=== PATIENT | male | born 1930 | race Caucasian/White ===

== ENCOUNTER → 2016-11-26 | Outpatient (CLI) | payer MEDICARE, OTHER ==
[~2016-11-26] MED LIST: ASPI1TAB7; LOMO PO; MECL-62 PO; MECL1TAB42 PO; PROP20TA3 PO; VITA100064 PO
[2016-11-26 08:06] LABS: AUTOMATED NEUTROPHIL # 2.9 TH/MM3 (1.8-7.7); BASOPHIL % 0.6 % (0.0-2.0); EOSINOPHIL # 0.2 TH/MM3 (0-0.4); EOSINOPHIL % 4.4 % (0.0-4.0); HEMATOCRIT 41.6 % (39.0-51.0); HEMO FLAGS DIFF FINAL; LYMPH % 27.8 % (9.0-44.0); LYMPHOCYTE # 1.4 TH/MM3 (1.0-4.8); MEAN CELL VOLUME 92.4 FL (80.0-100.0); MEAN CORPUSCULAR HEMOGLOBIN 30.9 PG (27.0-34.0); MEAN CORPUSCULAR HGB CONC 33.5 % (32.0-36.0); MONO % 8.3 % (0.0-8.0); NEUT % 58.9 % (16.0-70.0); PLATELET COUNT 195 TH/MM3 (150-450); RED CELL DISTRIBUTION WIDTH 13.6 % (11.6-17.2)
[2016-11-26 09:15] LABS: ALKALINE PHOSPHATASE 50 U/L (45-117); ALT (GPT) 20 U/L (12-78); ANION GAP 4 MEQ/L (5-15); AST (GOT) 22 U/L (15-37); BICARBONATE 33.1 MEQ/L (21.0-32.0); BLOOD UREA NITROGEN 23 MG/DL (7-18); CHLORIDE 103 MEQ/L (98-107); GLOMERULAR FILTRATION RATE 65 ML/MIN (>89); GLUCOSE,FASTING 93 MG/DL (74-99); HDL CHOLESTEROL 41.1 MG/DL (40.0-60.0); LDL CHOLESTEROL 93 MG/DL (0-99); POTASSIUM 4.8 MEQ/L (3.5-5.1); SODIUM (NA) 140 MEQ/L (136-145); TOTAL BILIRUBIN ADULT 0.7 MG/DL (0.2-1.0)
== END ==
LOC: CLAB 07:36
PROVIDERS: ATTEND Family Medicine
DX: D86.0 Sarcoidosis of lung (principal); G25.0 Essential tremor; I67.1 Cerebral aneurysm, nonruptured; I10 Essential (primary) hypertension; I71.9 Aortic aneurysm of unspecified site, without rupture
CPT/HCPCS: 36415; 80053; 80061; 82306; 84443; 85025

== ENCOUNTER 2017-05-27 12:31 | Inpatient (IN) | payer MEDICARE, OTHER ==
[~2017-05-27] VITALS: Ht 188 cm; Wt 75.0 kg
[2017-05-27 12:34] VITALS: BP 167/79; PULSE 68; RESP 20; TEMP 97.8; O2SAT 96
[2017-05-27 13:35] LABS: AUTOMATED NEUTROPHIL # 4.8 TH/MM3 (1.8-7.7); BASOPHIL % 0.4 % (0.0-2.0); EOSINOPHIL # 0.1 TH/MM3 (0-0.4); EOSINOPHIL % 2.1 % (0.0-4.0); HEMATOCRIT 43.7 % (39.0-51.0); HEMO FLAGS DIFF FINAL; LYMPH % 18.4 % (9.0-44.0); LYMPHOCYTE # 1.2 TH/MM3 (1.0-4.8); MEAN CELL VOLUME 93.3 FL (80.0-100.0); MEAN CORPUSCULAR HGB CONC 33.2 % (32.0-36.0); MONO % 7.4 % (0.0-8.0); NEUT % 71.7 % (16.0-70.0); PLATELET COUNT 164 TH/MM3 (150-450); RED BLOOD COUNT 4.68 MIL/MM3 (4.50-5.90); WHITE BLOOD COUNT 6.7 TH/MM3 (4.0-11.0)
[2017-05-27 13:47] LABS: PROTHROMBIN TIME - PATIENT 10.5 SEC (9.8-11.6)
[2017-05-27 14:00] LABS: BICARBONATE 32.9 MEQ/L (21.0-32.0); POTASSIUM 4.6 MEQ/L (3.5-5.1)
--- NOTE | 2017-05-27 14:25 | RADRPT ---
EXAM DATE/TIME: 05/27/2017 13:37 [place] COMPARISON: No previous studies available for comparison. INDICATIONS : Chest pain yesterday. MEDICAL HISTORY : Chronic obstructive pulmonary disease. Sarcoidosis SURGICAL HISTORY : lung surgery years ago because of Sarcoidosis ENCOUNTER: Initial ACUITY: 2 days PAIN SCORE: 8/10 LOCATION: Bilateral chest FINDINGS: PA and mild views of the chest showed nodular densities scattered throughout both lungs. The largest involves the left suprahilar region measuring approximately 2.5 cm in size. No acute infiltrate or ef fusion. Heart is normal in size. Aorta is calcified and mildly tortuous. Calcified lymph nodes are se en scattered throughout the mediastinum. CONCLUSION: 1. Bilateral pulmonary nodules. This could relate to metastatic disease. CT scan of the thorax is sug gested to further evaluate. Gopal Hawkins Jr., MD on May 27, 2017 at 14:21 Board Certified Radiologist. This report was verified electronically.
--- NOTE | 2017-05-27 15:28 | PD ---
HPI Chief Complaint: Chest Pain Time Seen by Provider: 15:15 Travel History International Travel<30 days: No Contact w/Intl Traveler<30days: No Traveled to known affect area: No History of Present Illness HPI 86-year-old male presents for evaluation of chest pain. Symptoms started yesterday evening in the middle the night. He reports a left-sided chest pain that radiated into the left arm and back and lasted for approximately 10-20 minutes and then resolved. He had a similar pain this morning at 10 AM while sitting at home it resolved after 10 minutes. He then decided to come here. While in the waiting room he had a brief episode of pain but he has no pain currently. Lab work and EKG were performed in triage under protocol orders and they do reveal an elevated troponin. The patient currently has no complaints. He denies any chest pain, shortness of breath, diaphoresis, nausea or vomiting, abdominal pain, recent illness, calf swelling. He has never had this type of pain before. Denies any cardiac history. He reports a history of tremors for which he takes propranolol. He reports his primary care physician is Dr. Goldstein. Denies tobacco use. No other complaints. [facility] Past Medical History Diminished Hearing: No Kidney Stones: Yes Neurologic: Yes (TREMORS) Respiratory: Yes (MISSING PART OF L UPPER LOBE) Past Surgical History Genitourinary Surgery: Yes (MULTIPLE LITHOTRIPSY) Thoracic Surgery: Yes (LEFT LOBECTOMY R/T INFECTION) Other Surgery: Yes (FX NOSE REPAIR) Social History Alcohol Use: Yes (1-2 DAILY) Tobacco Use: No Substance Use: No Allergies-Medications (Allergen,Severity, Reaction): Coded Allergies: No Known Allergies (Unverified , 05/27/17) Reported Meds & Prescriptions Reported Meds & Active Scripts Active Propranolol (Propranolol HCl) 20 Mg Tab 20 Mg PO Q8HR Meclizine 25 (Meclizine HCl) 25 Mg Tab 1 Tab PO BID Vitamin D3 (Cholecalciferol) 1,000 Unit Tab 1,000 Units PO DAILY Meclizine Hcl (Meclizine HCl) 25 Mg Tab 25 Mg PO BID Propranolol (Propranolol HCl) 20 Mg Tab 20 Mg PO TID Lomotil (Diphenoxylate HCl/Atropine) 1 Tab Tab 2 Tab PO TID PRN For Severe Diarrhea. Reported Aspirin 81 mg Tab (Aspirin) 81 Mg Tab Review of Systems Except as stated in HPI: all other systems reviewed are Neg Physical Exam Narrative GENERAL: Pleasant well developed well-nourished male in no acute distress resting comfortably in hospital bed. Vital signs reviewed. SKIN: Warm and dry. HEAD: Atraumatic. Normocephalic. EYES: Pupils equal and round. No scleral icterus. No injection or drainage. ENT: No nasal bleeding or discharge. Mucous membranes pink and moist. NECK: Trachea midline. No JVD. CARDIOVASCULAR: Regular rate and rhythm. No murmur appreciated. RESPIRATORY: No accessory muscle use. Clear to auscultation. Breath sounds equal bilaterally. GASTROINTESTINAL: Abdomen soft, non-tender, nondistended. Hepatic and splenic margins not palpable. MUSCULOSKELETAL: No obvious deformities. No clubbing. No cyanosis. No edema. NEUROLOGICAL: Awake and alert. No obvious cranial nerve deficits. Motor grossly within normal limits. Normal speech. PSYCHIATRIC: Appropriate mood and affect; insight and judgment normal. Data Data Last Documented VS Vital Signs Date Time Temp Pulse Resp B/P Pulse Ox O2 Delivery O2 Flow Rate FiO2 05/27/17 12:34 97.8 68 20 167/79 96 Room Air Orders Electrocardiogram (05/27/17 12:55) Complete Blood Count With Diff (05/27/17 12:55) Basic Metabolic Panel (Bmp) (05/27/17 12:55) Ckmb (Isoenzyme) Profile (05/27/17 12:55) Troponin I (05/27/17 12:55) Prothrombin Time / Inr (Pt) (05/27/17 12:55) Chest, Pa & Lat (05/27/17 12:55) Act Partial Throm Time (Ptt) (05/27/17 15:22) Aspirin Chew (Aspirin Chew) (05/27/17 15:30) Heparin Infusion VIN.Q1H (05/27/17 15:41) Heparin Inj (Heparin Inj) (05/27/17 15:45) Heparin Inj (Heparin Inj) (05/27/17 21:45) Heparin Inj (Heparin Inj) (05/27/17 21:45) Heparin-D5w Inj (Heparin-D5w Inj) (05/27/17 15:45) Act Partial Throm Time (Ptt) (05/27/17 15:41) Prothrombin Time / Inr (Pt) (05/27/17 15:41) Cbc No Diff, Includes Plts (05/27/17 15:41) Cbc No Diff, Includes Plts (05/30/17 06:00) Act Partial Throm Time (Ptt) (05/27/17 22:41) Occult Blood (Hemoccult) Stool (05/27/17 15:41) Admit To Inpatient (05/27/17 ) Code Status (05/27/17 16:39) Vital Signs (Adult) Q4H (05/27/17 16:39) Activity Oob Ad Lisa (05/27/17 16:39) Ecommerce Marketing Manager / Telemetry .CONTINUOUS (05/27/17 16:39) Intake + Output VIN.QSHIFT (05/27/17 16:39) Notify Dr: Other (05/27/17 16:39) Diet Heart Healthy (05/27/17 Dinner) Sodium Chlor 0.9% 1000 Ml Inj (Ns 1000 M (05/27/17 23:59) Sodium Chloride 0.9% Flush (Ns Flush) (05/27/17 16:45) Sodium Chloride 0.9% Flush (Ns Flush) (05/27/17 21:00) Acetaminophen (Tylenol) (05/27/17 16:45) Basic Metabolic Panel (Bmp) (05/28/17 06:00) Troponin I (05/27/17 19:11) Troponin I (05/28/17 01:11) Electrocardiogram (05/27/17 19:11) Electrocardiogram (05/28/17 01:11) Naloxone Inj (Narcan Inj) (05/27/17 16:45) Inpatient Certification (05/27/17 ) Propranolol (Inderal) (05/27/17 18:00) Resp Oxygen Juancarlos C Titrat 1-4 L (05/27/17 ) Aspirin (Aspirin) (05/28/17 09:00) Consult Cardiology (05/27/17 ) Admit Order (Ed Use Only) (05/27/17 17:05) Labs Laboratory Tests Test 05/27/17 13:11 White Blood Count 6.7 TH/MM3 Red Blood Count 4.68 MIL/MM3 Hemoglobin 14.5 GM/DL Hematocrit 43.7 % Mean Corpuscular Volume 93.3 FL Mean Corpuscular Hemoglobin 31.0 PG Mean Corpuscular Hemoglobin 33.2 % Concent Red Cell Distribution Width 14.0 % Platelet Count 164 TH/MM3 Mean Platelet Volume 8.1 FL Neutrophils (%) (Auto) 71.7 % Lymphocytes (%) (Auto) 18.4 % Monocytes (%) (Auto) 7.4 % Eosinophils (%) (Auto) 2.1 % Basophils (%) (Auto) 0.4 % Neutrophils # (Auto) 4.8 TH/MM3 Lymphocytes # (Auto) 1.2 TH/MM3 Monocytes # (Auto) 0.5 TH/MM3 Eosinophils # (Auto) 0.1 TH/MM3 Basophils # (Auto) 0.0 TH/MM3 CBC Comment DIFF FINAL Differential Comment Prothrombin Time 10.5 SEC Prothromb Time International 1.0 RATIO Ratio Activated Partial 23.9 SEC Thromboplast Time Sodium Level 141 MEQ/L Potassium Level 4.6 MEQ/L Chloride Level 105 MEQ/L Carbon Dioxide Level 32.9 MEQ/L Anion Gap 3 MEQ/L Blood Urea Nitrogen 21 MG/DL Creatinine 1.07 MG/DL Estimat Glomerular Filtration 66 ML/MIN Rate Random Glucose 72 MG/DL Calcium Level 9.2 MG/DL Total Creatine Kinase 85 U/L Troponin I 0.47 NG/ML MDM Medical Decision Making Medical Screen Exam Complete: Yes Emergency Medical Condition: Yes Medical Record Reviewed: Yes Interpretation(s) EKG reveals sinus rhythm, rate 63, the acute ST changes or T-wave inversions CBC unremarkable Troponin 0.47 Chest x-ray reveals bilateral pulmonary nodules. CT scan of the thorax is suggested for further evaluation. Differential Diagnosis ACS, angina, aortic dissection, pulmonary embolism, pneumothorax, pericarditis, myocarditis Narrative Course 86-year-old male presents after episodic chest pain which started in the middle the night, no pain currently. Pain occurred at rest with no obvious aggravating factors. It is left-sided chest pain that radiated into the left arm, back. Lab work performed in triage reveals a troponin of 0.47. EKG reveals no acute ischemic changes. The patient has already taken 81 mg aspirin at home. He will be given additional aspirin for total 325 mg of aspirin. Multimedia Authoring Specialist on-call will be consulted. 1538: I discussed with steam boiler fireman Dr. Lopez to has agreed to see the patient in consultation, like the patient to be NPO after midnight likely for cardiac catheterization tomorrow, he is agreeable with heparin infusion. I discussed with the patient who is agreeable. He denies any recent bleeding episodes, denies any hematemesis, hematochezia, black or tarry stools. Diagnosis Primary Impression: NSTEMI (non-ST elevated myocardial infarction) Admitting Information Admitting Physician Requests: Admit Mauricio Burns May 27, 2017 15:28
[2017-05-27] MEDS ORDERED: ASPIRIN 81 MG CHEW TAB PO ONE (15:30)
[2017-05-27 15:42] LABS: APTT (PATIENT) 23.9 SEC (24.3-30.1)
[2017-05-27] MEDS ORDERED: HEPARIN-D5W INJ 250 ML IV SCH (15:45)
[2017-05-27] MEDS ORDERED: HEPARIN SODIUM - IV 10,000 UNITS/10 ML VIAL IV ONE (15:45)
--- NOTE | 2017-05-27 16:40 | HHI.HP ---
HPI Service Family Medicine Primary Care Physician Unknown Admission Diagnosis Diagnoses: Chief Complaint: chest pain International Travel<30 Days: No Contact w/Intl Traveler<30days: No Known Affected Area: No History of Present Illness 86 yr old M presents to the ED with chest pain. Pt states the chest pain started about 2-3 am last night and woke the patient up. Described the pain as sharp 7/10 radiating to the back and left arm. Lasted for 30 min, resolved, and pt went back to sleep. Pt experienced the same pain again around 10AM and decided to come to the ED. drove him. He has never had a similar episode before. Denies any cardiac history, SOB, diaphoresis, N/V, abdominal pain, calf swelling. When seen in the ED, pt was not having any active chest pain and appeared well. EKG in ED was normal, no ST elevations or T wave changes. However, troponin was elevated at 0.47. Pt started on heparin drip. Pt is currently on propranolol for essential tremor and takes a baby aspirin daily. No hx of smoking. PCP is Dr. Solo Goldstein. 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 Lives in [place]. Retired. Tobacco: denies ETOH: two drinks/day Drugs: denies (Marcia Pan MD R1) Physical Exam Vital Signs Vital Signs Date Time Temp Pulse Resp B/P Pulse Ox O2 Delivery O2 Flow Rate FiO2 05/27/17 12:34 97.8 68 20 167/79 96 Room Air Physical Exam GENERAL: This is a well-nourished, well-developed patient, in no apparent distress. Sitting up in hospital bed, very friendly. SKIN: No rashes, ecchymoses or lesions. Cool and dry. HEAD: Atraumatic. Normocephalic. No temporal or scalp tenderness. EYES: Pupils equal round and reactive. Extraocular motions intact. No scleral icterus. No injection or drainage. ENT: Nose without bleeding, purulent drainage or septal hematoma. Throat without erythema, tonsillar hypertrophy or exudate. Uvula midline. Airway patent. NECK: Trachea midline. No JVD or lymphadenopathy. Supple, nontender, no meningeal signs. CARDIOVASCULAR: Regular rate and rhythm without murmurs, gallops, or rubs. RESPIRATORY: Clear to auscultation. Breath sounds equal bilaterally. No wheezes , rales, or rhonchi. GASTROINTESTINAL: Abdomen soft, non-tender, nondistended. No hepato-splenomegaly , or palpable masses. No guarding. MUSCULOSKELETAL: Extremities without clubbing, cyanosis, or edema. No joint tenderness, effusion, or edema noted. No calf tenderness. Negative Homans sign bilaterally. NEUROLOGICAL: Awake and alert. Cranial nerves II through XII intact. Motor and sensory grossly within normal limits. Five out of 5 muscle strength in all muscle groups. Normal speech. Laboratory Laboratory Tests Test 05/27/17 13:11 White Blood Count 6.7 Red Blood Count 4.68 Hemoglobin 14.5 Hematocrit 43.7 Mean Corpuscular Volume 93.3 Mean Corpuscular Hemoglobin 31.0 Mean Corpuscular Hemoglobin 33.2 Concent Red Cell Distribution Width 14.0 Platelet Count 164 Mean Platelet Volume 8.1 Neutrophils (%) (Auto) 71.7 Lymphocytes (%) (Auto) 18.4 Monocytes (%) (Auto) 7.4 Eosinophils (%) (Auto) 2.1 Basophils (%) (Auto) 0.4 Neutrophils # (Auto) 4.8 Lymphocytes # (Auto) 1.2 Monocytes # (Auto) 0.5 Eosinophils # (Auto) 0.1 Basophils # (Auto) 0.0 CBC Comment DIFF FINAL Differential Comment Prothrombin Time 10.5 Prothromb Time International 1.0 Ratio Activated Partial 23.9 Thromboplast Time Sodium Level 141 Potassium Level 4.6 Chloride Level 105 Carbon Dioxide Level 32.9 Anion Gap 3 Blood Urea Nitrogen 21 Creatinine 1.07 Estimat Glomerular Filtration 66 Rate Random Glucose 72 Calcium Level 9.2 Total Creatine Kinase 85 Troponin I 0.47 (Marcia Pan MD R1) Result Diagram: 05/27/17 1311 05/27/17 1311 Assessment and Plan Assessment and Plan 86-year old M presenting with episodic chest pain. Pt had left-sided chest pain radiating to left arm and back. Pt had no active chest pain when seen in ED. EKG was normal. CXR revealed bilateral pulmonary nodules, possibly due to pt's hx of sarcoidosis. Labs revealed elevated troponin at 0.47. Differential diagnoses include ACS, angina, AK, aortic dissection, pulmonary embolism. Pt on heparin drip, started on metoprolol (for BP), and continue with aspirin. Pt will be started on statin. Since pt is now at increased cardiovascular risk, lipid panel ordered. Cardiology consulted. Pt made NPO after midnight, will perform cardiac catheterization in the AM. Code Status Full code Discussed Condition With Pt discussed with Dr. Stevens. Pt seen and examined with Dr. Atul Harrell (Marcia Pan MD R1) Attending Attestation THIS CASE WAS DISCUSSED WITH THE RESIDENT PHYSICIANS. I HAVE REVIEWED THE RECORD AND AGREE WITH THE ABOVE NOTE AND PLAN OF CARE WAS DISCUSSED. I HAVE AUTHORIZED THE ORDER FOR ADMISSION TO AN IN-PATIENT STATUS. (Raghavendra Stevens MD) Problem List: (1) NSTEMI (non-ST elevated myocardial infarction) Status: Acute Plan: Pt presented with episodic left-sided chest pain radiating to the back and left arm. -EKG within normal limits -CBC unremarkable -Troponin elevated at 0.47, will continue to trend -CXR reveals bilateral pulmonary nodules, possibly due to pt's hx of sarcoidosis -Pt takes baby aspirin at home, will continue to take while in hospital -Pt on heparin drip -Since pt has increased cardiovascular risks, lipid panel ordered -Cardiology consulted, will perform cardiac catheterization in the AM, pt made NPO after midnight -Pt will start atorvastatin tomorrow and will be discharge on it -Pt placed on telemetry (2) Benign essential tremor Status: Acute Plan: -Pt takes propranolol at home -Will hold off on propranolol, since pt was started on metoprolol for high BP (3) Hypertension Status: Acute Plan: -Last BP check was 166/89 -Start Metoprolol 25mg PO daily -Continue to monitor BP (4) Nutrition, metabolism, and development symptoms Status: Acute Plan: Fluids: start at midnight on maintenance fluids Nutrition: NPO after midnight Nursing orders: telemetry, monitor I & Os, monitor vitals q4h (Marcia Pan MD R1) Physician Certification 2 Midnight Certification Type: Admission for Inpatient Services Order for Inpatient Services The services are ordered in accordance with Medicare regulations or non- Medicare payer requirements, as applicable. In the case of services not specified as inpatient-only, they are appropriately provided as inpatient services in accordance with the 2-midnight benchmark. Estimated LOS (days): 2 2 days is the estimated time the patient will need to remain in the hospital, assuming treatment plan goals are met and no additional complications. Post-Hospital Plan: Home (Marcia Pan MD R1) Problem Qualifiers (1) Hypertension: Qualified Code: I10 - Hypertension, unspecified type Marcia Pan MD R1 May 27, 2017 16:40 Raghavendra Stevens MD May 28, 2017 16:39
[2017-05-27] MEDS ORDERED: SODIUM CHLORIDE 0.9% FLUSH 10 ML FLUSH IV FLUSH PRN (16:45)
[2017-05-27] MEDS ORDERED: NALOXONE HCL 0.4 MG/ML AMP IV PRN (16:45)
[2017-05-27] MEDS ORDERED: ACETAMINOPHEN 325 MG TAB PO PRN (16:45)
[2017-05-27 17:28] VITALS: BP 166/89; PULSE 69; RESP 18; O2SAT 96
[2017-05-27 18:00] VITALS: O2SAT 96
[2017-05-27] MEDS ORDERED: PROPRANOLOL HCL 20 MG TAB PO SCH (18:00)
[2017-05-27] MEDS: METOPROLOL SUCCINATE 25 MG EXTENDED RELEASE TAB PO SCH (18:20)
[2017-05-27 19:24] LABS: HDL CHOLESTEROL 60.2 MG/DL (40.0-60.0)
[2017-05-27 19:44] VITALS: BP 121/74; PULSE 78; RESP 18; O2SAT 98
[2017-05-27] MEDS ORDERED: ASPI81CH CHEW ×2 (19:45→19:46)
[2017-05-27] MEDS: SODIUM CHLORIDE 0.9% FLUSH 10 ML FLUSH IV FLUSH SCH (21:05)
[2017-05-27 21:45] VITALS: BP 162/85; PULSE 65; RESP 18; TEMP 97.6; O2SAT 96
[2017-05-27] MEDS ORDERED: HEPARIN SODIUM - IV 10,000 UNITS/10 ML VIAL IV PRN ×2 (21:45)
[2017-05-27 22:30] LABS: APTT (PATIENT) 42.9 SEC (24.3-30.1)
[2017-05-28] VITALS (9 sets, daily range): BP systolic 116–146; BP diastolic 63–89; PULSE 6–87; RESP 16–20; TEMP 97.6–98.3; O2SAT 94–95
[2017-05-28] MEDS: SODIUM CHLOR 0.9% 1000 ML INJ 1,000 ML IV SCH ×2 (00:56→08:23)
[2017-05-28 04:14] LABS: APTT (PATIENT) 42.3 SEC (24.3-30.1)
[2017-05-28 04:28] LABS: BICARBONATE 27.2 MEQ/L (21.0-32.0); POTASSIUM 4.2 MEQ/L (3.5-5.1)
--- NOTE | 2017-05-28 07:29 | HHI.FPPN ---
Subjective Remarks Pt doing well this AM. Sitting up in bed and reading. Vitals are within normal limits. Afebrile. Pt reports not having any active chest pain throughout the night. Pt states he will get cardiac catherization around 10AM. Denies CP, SOB, and N/V. No other complaints at this time. (Marcia Pan MD R1) Objective Vitals Vital Signs Date Time Temp Pulse Resp B/P Pulse Ox O2 Delivery O2 Flow Rate FiO2 05/28/17 04:00 97.6 59 16 118/63 94 05/28/17 00:00 97.8 62 16 122/68 94 05/27/17 21:45 97.6 65 18 162/85 96 05/27/17 19:44 78 18 121/74 98 Room Air 05/27/17 18:00 96 21 05/27/17 17:28 69 18 166/89 96 Room Air 05/27/17 12:34 97.8 68 20 167/79 96 Room Air (Marcia Pan MD R1) Result Diagram: 05/27/17 1311 05/28/17 0344 Objective Remarks GENERAL: Well-nourished, well-developed patient. Pleasant, sitting in bed reading about his cardiac procedure. CARDIOVASCULAR: Regular rate and rhythm without murmurs, gallops, or rubs. RESPIRATORY: Breath sounds equal bilaterally. No accessory muscle use. GASTROINTESTINAL: Abdomen soft, non-tender, nondistended. EXTREMITIES: No cyanosis, or edema. (Marcia Pan MD R1) A/P Assessment and Plan 86-year old M presenting with episodic chest pain. Pt had left-sided chest pain radiating to left arm and back. Pt had no active chest pain when seen in ED. EKG was normal. CXR revealed bilateral pulmonary nodules, possibly due to pt's hx of sarcoidosis. Elevated troponin in ED at 0.47. Differential diagnoses include ACS, angina, [place], aortic dissection, pulmonary embolism. Pt on heparin drip, started on metoprolol (for BP), and continue with aspirin. Pt started on statin yesterday. Lipid panel showed elevated LDL at 101. Cardiology consulted. Troponin trending up to 1.37. Pt having cardiac catheterization this AM. (Marcia Pan MD R1) Attending Attestation Patient examined and case discussed with resident physicians I have read the above note and agree with the assessment/plan is discussed with me I was involved in all medical decision making for this patient Raghavendra Stevens M.D. (Raghavendra Stevens MD) Problem List: (1) NSTEMI (non-ST elevated myocardial infarction) Status: Acute Plan: Pt presented with episodic left-sided chest pain radiating to the back and left arm. Elevated troponin. Pt receiving cardiac procedure this AM. Will order repeat EKG and troponin after cardiac procedure today. -EKG 05/27 within normal limits -CBC 05/27 unremarkable -Troponin elevated at 0.47 in ED 05/27, troponin trending up to 1.37 00:51 at -CXR reveals bilateral pulmonary nodules, possibly due to pt's hx of sarcoidosis -Pt takes baby aspirin at home, will continue to take while in hospital -Pt on heparin drip -Since pt has increased cardiovascular risks, lipid panel showed elevated LDL at 101 -Cardiology consulted, will perform cardiac catheterization today -Pt started on atorvastatin and will be discharge on it -Pt placed on telemetry (2) Benign essential tremor Status: Acute Plan: -Pt takes propranolol at home -Will hold off on propranolol, since pt was started on metoprolol for high BP (3) Hypertension Status: Acute Plan: -Last BP check was 118/63 -Continue Metoprolol 25mg PO daily -Continue to monitor BP (4) Nutrition, metabolism, and development symptoms Status: Acute Plan: Fluids: discontinue maintence fluids after pt comes back from cardiac procedure Nutrition: start regular diet after cardiac catherization Nursing orders: telemetry, monitor I & Os, monitor vitals q4h (Marcai Pan MD R1) Problem Qualifiers (1) Hypertension: Qualified Code: I10 - Hypertension, unspecified type Marcia Pan MD R1 May 28, 2017 07:28 Raghavendra Stevens MD May 28, 2017 16:39
[2017-05-28] MEDS: ASPIRIN 325 MG TAB PO SCH (08:21)
[2017-05-28] MEDS: METOPROLOL SUCCINATE 25 MG EXTENDED RELEASE TAB PO SCH (08:21)
[2017-05-28] MEDS: SODIUM CHLORIDE 0.9% FLUSH 10 ML FLUSH IV FLUSH SCH ×2 (08:21→21:00)
[2017-05-28] MEDS ORDERED: HEPARIN-NS/PF INJ 500 ML ONE (08:34)
[2017-05-28] MEDS ORDERED: HEPARIN SODIUM - IV 10,000 UNITS/10 ML VIAL ONE (08:35)
[2017-05-28] MEDS ORDERED: NITROGLYCERIN INJ 5 ML ONE (08:35)
[2017-05-28] MEDS ORDERED: MIDAZOLAM HCL 2 MG/2 ML VIAL ONE (08:35)
[2017-05-28] MEDS ORDERED: BIVALIRUDIN 250 MG VIAL ONE (09:08)
[2017-05-28] MEDS ORDERED: NITROGLYCERIN 0.4 MG SL 25 TABS/BTL SL ONE (09:35)
--- NOTE | 2017-05-28 09:37 | MB ---
cc: SHIVANI OH DATE OF CONSULTATION: 05/28/2017 REASON FOR CONSULTATION [id number] CO. HISTORY OF PRESENT ILLNESS This is an 86-year-old gentleman who does not have prior history of known heart disease. He presented to the emergency department with acute onset of substernal chest pain. He has now had chest pain two nights in a row which woke him up about 2:00 or 3:00 a.m. yesterday. He described it as 7/10 discomfort radiating towards his left arm associated with some diaphoresis and minimal shortness of breath. He came into the emergency department. EKG showed no significant ST-segment changes but his initial troponin was elevated at 0.47. He has been chest pain free since arrival. His follow-up troponin is now further elevated. We are consulted for consideration of cardiac catheterization. PAST MEDICAL HISTORY 1. A very small brain aneurysm followed by neurosurgery without any invasive strategy planned. 2. Essential tremor. 3. Vertigo. 4. [place]'s disease. ALLERGIES No known drug allergies. FAMILY HISTORY He denies any family history of early coronary artery disease or sudden cardiac , although his mom at age 67 did have a stroke, heart disease and valve replacement. SOCIAL HISTORY He is retired. Denies any drug use or tobacco use. Does report two alcoholic drinks a day. REVIEW OF SYSTEMS A 12-point review of system was performed and negative unless otherwise noted in the history of present illness. PHYSICAL EXAMINATION VITAL SIGNS: Temperature 97, heart rates 59, blood pressure 118/63 mmHg. GENERAL: In general alert and oriented x3 in no acute distress. HEENT: Pupils are reactive to light and accommodation. Extraocular movements are intact. NECK: No jugular venous distention. No thyromegaly. No lymphadenopathy. No carotid bruits. LUNGS: Clear to auscultation bilaterally. CARDIOVASCULAR: Regular rate and rhythm without murmurs, rubs or gallops. ABDOMEN: Nontender, nondistended. Good bowel sounds. No hepatosplenomegaly. EXTREMITIES: No clubbing, cyanosis or edema. Good peripheral pulses. NEUROLOGIC: Cranial nerves intact. Motor and sensory grossly intact. LABORATORY Sodium 142, potassium 4.2, BUN 19, creatinine 0.94. Troponins up to 1.37. ELECTROCARDIOGRAM Electrocardiogram shows sinus rhythm with no ischemic changes. ASSESSMENT 1. [id number] CO. 2. Hypertension. PLAN Given the patient's suggestive symptoms and elevated troponin this does appear to be clearly related to acute coronary syndrome. We discussed risks, benefits and alternatives of cardiac catheterization. He is agreeable. He is on aspirin, beta melinda and statin therapy. His heart rate is on the low side. Will see how his heart rate augments with activity. He is on a heparin drip. Will stop that prior to the procedure. Will obtain a 2-D echocardiogram and anticipate cardiac catheterization later today. MD ESSIE Belcher/BT /7:51 AM /9:26 AM
[2017-05-28] MEDS ORDERED: CLOPIDOGREL 300 MG TAB ONE (09:39)
--- NOTE | 2017-05-28 09:46 | CATHPROC ---
[email or web address] HIS Report Study Information Study Number Admission Scheduled Start Study Start [id number] May 27 2017 5:07PM 05/27/2017 May 28 2017 8:37AM [place] [facility] Cardiac Catheterization Admit Source Facility Department Other [facility] - Deputy Chief Executive Physician and Clinical Staff Initial Ivan Lopez Chief Informatics Officer Talisha Edgar,RN Other cathlab, cathlab Recorder Santiago Lange RCIS(BS) Scrub Aleta Salazar,RT(R) (BS) Procedures Performed Procedure Location (Site) Vessel Name Coronary Angiograms RCA Right Coronary Drug Eluting Inflatio CIRC Mid CIRC L Heart Cath PTCA CIRC Mid CIRC Wire insertion Radial (right) Radial Art. Equipment Time Sole Rougher Description Size Mfg Part Number Used/Scraped TRANSDUCER, JADE [id number] 08:38 Xiaohongshu * Used W/STOCKCOCK *[id number] 09:15 [employer] BALLOON, 2.0 12MM EMERGE MR 2.0 12MM Used *[id number] [phone] *[id number] [phone] *[id number] *[id number] [id number] *[id number] 08:38 MEDLINE INDUSTRIES PACK, CCL CUSTOM * Used *[id number] 08:38 CoverMyMeds SUPPORT, ARTERIAL ADULT [id number] Used [id number] 08:38 MEDLINE PACER PEN, SKIN DUAL W/ RULER * Used *[id number] STENT, 2.5 18 RESOLUTE [id number] 09:23 MEDTRONIC 2.5 18 Used INTEGRITY RX *[id number] STENT, 2.5 8 RESOLUTE [id number] 09:31 MEDTRONIC 2.5 8 Used INTEGRITY RX *[id number] 09:10 [place] 30 BOBBY INDEFLATOR Used *[id number] BAND, RADIAL COMPRESSION TR [id number] 09:38 CinnaBid MEDICAL 29CM Used LARGE 29 *[id number] SHEATH, FR6 RADIAL PRELUDE 08:38 [employer]lestop FR 6 [id number] Used EASE 11CM [id number] 08:38 [employer] WIRE, EXCHANGE 260CM 3MMJ 260CM Used *[id number] 08:38 NYCOMED OMNIPAQUE, 350 MG, 150ML 150ML [id number] Used [id number] 08:38 [facility] BLANKET,WARM AIR CCL * Used *[id number] WIRE, RUNTHROUGH NS FLOPPY [id number] 09:10 Growl Media 180CM Used .014 180CM *[id number] Equipment Model, Serial, Lot Number and Expiration Data Description Model Number Serial Number Lot Number Expiration Date BALLOON, 2.0 12MM EMERGE MR [id number] 10-03-2019 STENT, 2.5 18 RESOLUTE [id number] 08-24-2018 INTEGRITY RX STENT, 2.5 8 RESOLUTE [id number] 02-25-2019 INTEGRITY RX History: Current Medications Medication Dosage/Unit Route Frequency Last Date/Time Taken Beta Jhonathan ASA History: Allergies Allergy Reaction No Known Allergies History: Risk Factors Family History of Hypertension Dyslipidemia Previous OR Previous Heart Failure Premature CAD No No Yes No No Prior Valve Prior PCI Prior CABG Surgery No No No Cerebrovascular Peripheral Artery Chronic Lung On Dialysis Diabetes Disease Disease Disease No No No Yes No History: Symptoms/Diagnosis Selection Items Chest pain History: Stress Tests Stress or Imaging Studies Performed No History: Other Current Smoker Method Quit Packs a Day Years Used Pack Years No Cigarettes 47 Years Ago 1 10 10 Labs Hgb (g/dl) Hct (%) WBC (l/cumm) Platelets (thousands) 11.60-17.00 35.00-51.00 4.00-11.00 150.00-450.00 14.5 43.7 6.7 164 Glucose (mg/dl) BUN (mg/dl) Creatinine (mg/dl) BUN:Creatinine (1:x) 74.00-106.00 7.00-18.00 0.50-1.30 10.00-20.00 98 19 0.9 21.1 Na (meq/l) K (meq/l) 136.00-145.00 3.50-5.10 142 4.2 INR (PTT:PT) 0.90-1.10 1 Troponin I (ng/ml) CPK (u/l) CPK-MB (ng/ML) 0.02-0.05 26.00-308.00 0.50-3.60 1.37 85 Not Drawn Medication Medication Total Dose (Bolus/Oral) Medication Total Dosage/Unit 1% XYLOCAINE 5 mL ANGIOMAX BOLUS 10.8 mL FENTANYL 75 mcg HEPARIN 3000 units NITROGLYCERIN S/L 0.4 mg NTG (IC) 400 mcg OXYGEN 2 l/min PLAVIX 600 mg VERSED 2 mg Medications (Bolus/Oral) Medication Time Given Dosage/Unit Administered By Reason VERSED 05/28/2017 8:56:40 AM 1 mg Talisha Edgar 1 mg VERSED given in lab by Talisha Edgar RN in Left Forearm via Peripheral IV. Ordered by Ivan Lopez. FENTANYL 05/28/2017 8:56:53 AM 50 mcg Talisha Edgar 50 mcg FENTANYL given in lab by Talisha Edgar RN in Left Forearm via Peripheral IV. Ordered by Ivan Oconnor. OXYGEN 05/28/2017 9:01:22 AM 2 l/min Talisha Edgar 2 l/min OXYGEN given in lab by Talisha Edgar RN via Nasal. Ordered by Ivan Lopez. 1% XYLOCAINE 05/28/2017 9:01:32 AM 5 mL Ivan Lopez 5 mL 1% XYLOCAINE given in lab by Ivan Lopez in Right Radial via Subcutaneous. NTG (IC) 05/28/2017 9:02:51 AM 200 mcg Ivan Lopez 200 mcg NTG (IC) given in lab by Ivan Lopez in Right Radial via Intra-arterial. HEPARIN 05/28/2017 9:04:19 AM 3000 units Talisha Edgar 3000 units HEPARIN given in lab by Talisha Edgar RN in Left Forearm via Peripheral IV. Ordered b y Ivan Lopez. ANGIOMAX BOLUS 05/28/2017 9:09:53 AM 10.8 mL Talisha Edgar 10.8 mL ANGIOMAX BOLUS given in lab by Talisha Edgar RN in Left Forearm via Peripheral IV. Order ed by Ivan Lopez. NTG (IC) 05/28/2017 9:29:17 AM 200 mcg Ivan Lopez 200 mcg NTG (IC) given in lab by Ivan Lopez via Intra-coronary. VERSED 05/28/2017 9:32:09 AM 1 mg Talisha Edgar 1 mg VERSED given in lab by Talisha Edgar RN in Left Forearm via Peripheral IV. Ordered by Ivan Lopez. FENTANYL 05/28/2017 9:33:12 AM 25 mcg Talisha Edgar 25 mcg FENTANYL given in lab by Talisha Edgar RN in Left Forearm via Peripheral IV. Ordered by Ivan Oconnor. NITROGLYCERIN S/L 05/28/2017 9:36:15 AM 0.4 mg Talisha Edgar 0.4 mg NITROGLYCERIN S/L given in lab by Talisha Edgar RN via Sublingual. Ordered by Teo Lopez. PLAVIX 05/28/2017 9:37:00 AM 600 mg Talisha Egdar 600 mg PLAVIX given in lab by Talisha Edgar RN via Oral. Ordered by Ivan Lopez. Medication (Drip) Medication Time Given Dosage/Unit Concentration/Unit Diluent (ml) Solution ANGIOMAX DRIP 05/28/2017 9:13:35 AM 1.75 mg/kg/hr 250 mg 50 NaCl .9 1.75 mg/kg/hr ANGIOMAX DRIP given in lab by Talisha Edgar RN in Left Forearm via Peripheral IV. Pump/Drip Flow = 25.13 ml/hr using NaCl .9 with a concentration of 250 mg in 50 ml. Ordered by Ivan Lopez. IV Solutions 05/28/2017 8:37:30 AM 0 mL (IV) 500 NaCl .9 Patient arrived on IV Solutions given by cathlab, cathlab in Left Forearm via Peripheral IV. Pump/Dri p Flow = 20 ml/hr using NaCl .9. Initial Case Assessment Cardiovascular HR Rhythm NIBP Chest Pain 61 sinus 161/86 0 Edema Present Skin color Skin None Normal Warm Dry Circulatory - Right Pulses Dorsalis Pedis Femoral Radial 2 3 3 Scale (0,1,2,3,4,d) Scale (0,1,2,3,4,d) Neurological State Oriented to time-place- Alert Moves all extremities person Respiration - General Respiration Rate SpO2 (%) (B/min) 16 98 Final Case Assessment Cardiovascular HR Rhythm NIBP Chest Pain 69 sinus 149/88 0 Edema Present Skin color Skin None Normal Warm Dry Circulatory - Right Pulses Dorsalis Pedis Femoral Radial 2 3 3 Scale (0,1,2,3,4,d) Scale (0,1,2,3,4,d) Neurological State Oriented to time-place- Alert Moves all extremities person Respiration - General Respiration Rate SpO2 (%) (B/min) 14 100 Chronological Log Time Study Chronological Log 8:30:00 Patient arrived via Bed. 8:30:00 Patient Name, D.O.B, / Armband Verified By R.N. 8:30:00 Consent signed by the physician and the patient and verified by the Deputy Chief Executive staff. Vitals capture started with the following parameters, Patient=Adult, Interval=5 min, Initial Pre ewnlj=910 mmHg, 8:37:15 Deflation Rate=5 mmHg 8:37:18 Pre-op and post- op instructions given; patient acknowledges understanding of instructions. 8:37:18 Verbal Stimulation=2 Physical Stimulation=2 Airway=2 Respiration=2 TOTAL=8. (0=absent, 1=duncan ited, 2=present) 8:37:19 Presedation assessment performed by Deputy Chief Executive RN. 8:37:20 Allens test performed on the right radial and ulnar artery. 8:37:21 Immediate Presedation assesment performed by physician. 8:37:22 Patient has been NPO for More than 6Hrs. 8:37:22 Skin Breakdown- none per patient 8:37:26 Patient Warmer Placed on the Table. 8:37:27 Halie Prominences Protected 8:37:28 A # 20 IV was noted in the Forearm (right). Grade = 0 8:37:29 A # 20 IV was noted in the Forearm (left). Grade = 0 Patient arrived on IV Solutions given by cathlab, cathlab in Left Forearm via Peripheral IV. Pum p/Drip Flow = 20 ml/hr 8:37:30 using NaCl .9. 8:37:30 History and physical on the chart or being dictated. 8:39:16 HR=62 bpm, IORU=449/86 mmhg, SpO2=96.0 %, Resp=14 B/min, Pain=0, Laura=10, Montgomery=2 Assessment: Initial Case, HR=61 BPM, Rhythm=sinus, VOIU=264/86 mmhg, Chest Pain=0, Edema=None, Color=Normal, Skin = Warm, Dry 8:39:57 Right Pulses: John Ped=2, Femoral=3, Radial=3 Neurological: State=Alert, Ox3, AMAYA Respiration: Resp=16 B/min, SpO2=98 % 8:42:51 HR=60 bpm, JIYH=209/86 mmhg, SpO2=95.0 %, Resp=15 B/min, Pain=0, Laura=10, Montgomery=2 8:47:50 HR=59 bpm, KPNG=174/75 mmhg, SpO2=95.0 %, Resp=15 B/min, Pain=0, Laura=10, Montgomery=2 8:48:10 Right Radial and groin(s) prepped with 2% chlorhexidine, and with a 3 min. waiting time. 8:52:49 HR=63 bpm, QMMB=023/88 mmhg, SpO2=96.0 %, Resp=14 B/min, Pain=0, Laura=10, Montgomery=2 8:52:50 paged 8:54:05 Pressure channel 1 zeroed. 8:55:38 MD responded 8:56:14 MD arrived. 8:56:18 Contrast Scanned 8:56:19 Immediate Presedation assesment performed by physician. 8:56:40 1 mg VERSED given in lab by Talisha Edgar, NABILA in Left Forearm via Peripheral IV. Ordered by Ivan Lopez. 50 mcg FENTANYL given in lab by Talisha Edgar RN in Left Forearm via Peripheral IV. Ordered by John 8:56:53 Ivan. 8:57:48 HR=65 bpm, WHVQ=374/93 mmhg, SpO2=96.0 %, Resp=16 B/min, Pain=0, Laura=10, Montgomery=2 Time Out. Correct patient, correct procedure,correct physician, ,power injector loaded with cont rast with surgical team 9:00:50 present. Time Out Concurred by , individual staff in procedure 9:01:10 Case Start 9:01:17 Verbal Stimulation=2 Physical Stimulation=2 Airway=2 Respiration=2 TOTAL=8. (0=absent, 1=duncan ited, 2=present) 9:01:22 2 l/min OXYGEN given in lab by Talisha Edgar, NABILA via Nasal. Ordered by Ivan Lopez. 9:01:32 5 mL 1% XYLOCAINE given in lab by Ivan Lopez in Right Radial via Subcutaneous. 9:02:27 Access site was Right Radial Artery. A SHEATH, FR6 RADIAL PRELUDE EASE 11CM FR 6 was advanced into the Radial (right) using the [place] ravinder 9:02:37 technique. 9:02:51 200 mcg NTG (IC) given in lab by Ivan Lopez in Right Radial via Intra-arterial. 9:02:52 HR=62 bpm, OZJB=920/86 mmhg, SpO2=95.0 %, Resp=16 B/min, Pain=0, Laura=10, Montgomery=2 9:03:09 In the Radial (right) the SHEATH, FR6 RADIAL PRELUDE EASE 11CM FR [address] by Ivan Lopez. A JR 5.0 INFINITI CATHETER FR 6 was advanced over a wire. OMNIPAQUE, 350 MG, 150ML 150ML was use d for 9:03:29 injections. 3000 units HEPARIN given in lab by Talisha Edgar, RN in Left Forearm via Peripheral IV. Orde red by John, 9:04:19 Ivan. Recorded Pressure: LV, HR=62, Condition=Condition 1 9:04:55 (Left Ventricle) LV 104/1/5 Recorded Pressure: LV, Ao, HR=62, Condition=Condition 1 9:05:01 (Left Ventricle) LV 102/-1/6, (Aorta) Ao 107/60/82 Recorded Pressure: Ao, HR=62, Condition=Condition 1 9:05:29 (Aorta) Ao 105/66/84 9:05:37 The RCA was injected and visualized at various angles. OMNIPAQUE, 350 MG, 150ML 150ML used. After removing the current catheter a JL 3.5 INFINITI CATHETER FR 6 was advanced over a WIRE, EX CHANGE 260CM 9:06:34 3MMJ 260CM. 9:07:49 HR=62 bpm, NWXN=064/70 mmhg, SpO2=98.0 %, Resp=8 B/min, Pain=0, Laura=10, Montgomery=2 Recorded Pressure: Ao, HR=63, Condition=Condition 1 9:07:55 (Aorta) Ao 108/64/84 After removing the current catheter a AL 1.5 GUIDE CATHETER FR 6 was advanced over a WIRE, EXCHA NGE 260CM 9:09:42 3MMJ 260CM. 10.8 mL ANGIOMAX BOLUS given in lab by Talisha Edgar, NABILA in Left Forearm via Peripheral IV. Ordered by 9:09:53 Ivan Lopez. After removing the current catheter a AL 3 GUIDE CATHETER FR 6 was advanced over a WIRE, EXCHANG E 260CM 9:12:27 3MMJ 260CM. 9:13:18 HR=61 bpm, CALP=519/76 mmhg, SpO2=99.0 %, Resp=12 B/min, Pain=0, Laura=10, Montgomery=2 1.75 mg/kg/hr ANGIOMAX DRIP given in lab by Talisha Edgar RN in Left Forearm via Peripheral IV. Pump/Drip 9:13:35 Flow = 25.13 ml/hr using NaCl .9 with a concentration of 250 mg in 50 ml. Ordered by Teo Lopez. 9:14:54 A WIRE, RUNTHROUGH NS FLOPPY .014 180CM 180CM was inserted via Radial (right). 9:17:53 HR=61 bpm, ARMP=622/79 mmhg, CcR2=711.0 %, Resp=12 B/min, Pain=0, Laura=10, Montgomery=2 9:19:02 Interventional wire has crossed the lesion A BALLOON, 2.0 12MM EMERGE MR 2.0 12MM was inserted over WIRE, RUNTHROUGH NS FLOPPY .014 180CM 1 80CM 9:21:17 via the CIRC Mid. A BALLOON, 2.0 12MM EMERGE MR 2.0 12MM over a WIRE, RUNTHROUGH NS FLOPPY .014 180CM 180CM in the CIRC 9:21:26 Mid was inflated using a 30 BOBBY INDEFLATOR at 12 bobby for 25 sec. 9:22:03 Balloon Removed. 9:23:35 HR=65 bpm, RTME=641/75 mmhg, GkM6=448.0 %, Resp=11 B/min, Pain=0, Laura=10, Montgomery=2 9:24:11 Lost wire position 9:26:22 Interventional wire has crossed the lesion A STENT, 2.5 18 RESOLUTE INTEGRITY RX 2.5 18 was advanced through a AL 3 GUIDE CATHETER FR 6 ove r a WIRE, 9:27:15 RUNTHROUGH NS FLOPPY .014 180CM 180CM. A STENT, 2.5 18 RESOLUTE INTEGRITY RX 2.5 18 was deployed using a 30 BOBBY INDEFLATOR at 14 atmosp heres for 9:27:45 14 seconds in the CIRC Mid. 9:27:55 HR=66 bpm, IALG=081/85 mmhg, SfJ3=682.0 %, Resp=15 B/min, Pain=0, Alura=10, Montgomery=2 9:28:54 Delivery device removed 9:29:17 200 mcg NTG (IC) given in lab by Ivan Lopez via Intra-coronary. A STENT, 2.5 8 RESOLUTE INTEGRITY RX 2.5 8 was advanced through a AL 3 GUIDE CATHETER FR 6 over a WIRE, 9:30:16 RUNTHROUGH NS FLOPPY .014 180CM 180CM. 9:32:09 1 mg VERSED given in lab by Talisha Edgar, NABILA in Left Forearm via Peripheral IV. Ordered by Ivan Lopez. A STENT, 2.5 8 RESOLUTE INTEGRITY RX 2.5 8 was deployed using a 30 BOBBY INDEFLATOR at 14 atmosphe res for 5 9:32:47 seconds in the CIRC Mid. 9:32:58 HR=67 bpm, AUJO=192/88 mmhg, KpI7=798.0 %, Resp=14 B/min, Pain=0, Laura=10, Montgomery=2 25 mcg FENTANYL given in lab by Talisha Edgar RN in Left Forearm via Peripheral IV. Ordered by John 9:33:12 Ivan. 9:34:01 Delivery device removed 9:34:11 Wire removed 9:34:48 Patient complaining of chest pain. 9:35:18 Catheter was removed 9:35:22 Case End 9:36:15 0.4 mg NITROGLYCERIN S/L given in lab by Talisha Edgar RN via Sublingual. Ordered by Ivan Delacruz. Assessment: Final Case, HR=69 BPM, Rhythm=sinus, ZPJF=119/88 mmhg, Chest Pain=0, Edema=None, Color=Normal, Skin = Warm, Dry 9:36:35 Right Pulses: John Ped=2, Femoral=3, Radial=3 Neurological: State=Alert, Ox3, AMAYA Respiration: Resp=14 B/min, TiG4=315 % 9:36:55 Catheter(s) removed without difficulty Radial Compression Device Used. 98 mLs of air placed in BAND, RADIAL COMPRESSION TR LARGE 29 29C M. Affected 9:36:56 hand 12 % O2 saturation. 9:37:00 600 mg PLAVIX given in lab by Talisha Edgar, NABILA via Oral. Ordered by Ivan Lopez. 9:37:09 Sterile dressing applied to site 9:37:10 No case complications noted. 9:37:11 Cine recording checked. 9:37:12 Holding Area notified of successful intervention. 9:37:13 Bedside Report will be given. 9:37:14 Implantable Device card placed in patient's chart. 9:37:16 Contrast Scanned 9:37:17 Verbal Stimulation=2 Physical Stimulation=2 Airway=2 Respiration=2 TOTAL=8. (0=absent, 1=duncan ited, 2=present) 9:37:24 A Left Heart Cath was performed. 9:37:57 HR=67 bpm, XLBE=488/87 mmhg, HxC0=668.0 %, Resp=12 B/min, Pain=0, Laura=10, Montgomery=2 9:43:00 HR=80 bpm, DDTV=361/84 mmhg, Resp=12 B/min, Pain=0, Laura=10, Montgomery=2 9:44:51 Vitals capture stopped. 9:44:53 [facility] - Contrast Media Used In Study Contrast Total Opened (mL) Total Used (mL) Total Wasted (mL) Omnipaque 150 150 0 End Study - Maximum Contrast Load Max Contrast Load (mL) 399.0 End Study - Radiation Exposure Fluoro Time (minutes) 10.9 End Study - Patient Disposition Complications Transferred To Interventional Outcome No Deputy Chief Executive Holding successful
[2017-05-28] MEDS ORDERED: SODIUM CHLOR 0.9% 1000 ML INJ 1,000 ML IV SCH (09:47)
[2017-05-28] MEDS ORDERED: BIVALIRUDIN INJ 250 MG in SODIUM CHLORIDE 0.9% INJ 50 ML IV SCH (09:47)
[2017-05-28] MEDS ORDERED: IOHEXOL 350 MG/ML 100 ML BTL (for Cath Lab) OTHER ONE (09:56)
[2017-05-28] MEDS ORDERED: IOHEXOL 350 MG/ML 50 ML BTL (for Cath Lab) OTHER ONE (09:56)
[2017-05-28] MEDS ORDERED: LIDOCAINE 2% JELLY 30 ML TUBE TOP PRN (10:00)
[2017-05-28] MEDS ORDERED: MISC INFORMATION XX ONE (10:00)
--- NOTE | 2017-05-28 10:57 | MA ---
cc: IVAN OH DATE 05/28/2017 INDICATION Out-PM-bjtmpaeno NC. PROCEDURE PERFORMED 1. Fluoroscopy with interpretation. 2. Coronary angiography. 3. Left heart catheterization. 4. Percutaneous intervention with drug-eluting stent to the proximal mid-left circumflex coronary artery. METHOD The risks, benefits and alternatives were discussed with the patient. The patient understood and consented to the procedure. The patient was brought into the catheterization lab and placed on the catheterization table. The right wrist was prepped and draped in sterile fashion. The right wrist was anesthetized with 2% lidocaine. The right radial artery was cannulated and a 6-Yi, 7-cm sheath was placed without difficulty. LEFT HEART CATHETERIZATION Intraventricular hemodynamics measured at 102/6 mmHg. CORONARY ANGIOGRAPHY 1. Left main coronary is angiographically normal. 2. Left anterior descending coronary artery has minor luminal irregularities in the proximal segment. There is a 50% stenosis in the mid-segment. There is a diagonal branch that has a 90% stenosis but a very small caliber size and appears to be occluded distally. The remainder of the left anterior descending artery has minor luminal irregularities and is quite tortuous. 3. Left circumflex gives rise to an obtuse marginal branch. There is a steep angulated takeoff to the circumflex with a 70% ostial stenosis. There is a 95% stenosis in the mid-circumflex just prior to the bifurcation of the obtuse marginal branch. 4. The right coronary artery is a dominant vessel giving rise to a posterior descending branch. The right coronary has mild luminal irregularities. The posterior descending branch has minor luminal irregularities. PERCUTANEOUS INTERVENTION Left coronary circulation is selectively engaged with a 6-Yi AL-3 guide catheter. A 0.014-inch, 180 cm eVigilo Run-Through wire was navigated down to the distal obtuse marginal branch without difficulty. A 2.0 x 12-mm RX Medtronic balloon Euphora was advanced to the mid-circumflex and deployed to 12 atmospheres. Repeat angiography showed still residual stenosis. A 2.5 x 18-mm RX Resolute drug-eluting stent was advanced down to the mid-left circumflex coronary artery and deployed. Repeat angiography showed good stent apposition, no evidence of dissection. There appeared to be some vasospasm or plaque shifting into the ostium of the circumflex. 200 mcg of intracoronary nitroglycerin did not completely resolve the stenosis. A 2.5 x 8-mm RX Resolute drug-eluting stents was advanced to the ostium of the circumflex with minimal stent overlap and deployed. Repeat angiography showed good stent apposition, DONNY-3 flow, no residual stenosis. The wire was removed, guide catheter removed, HemoBand applied. CONCLUSION 1. Severe left circumflex coronary disease. 2. Moderate mid-left anterior descending coronary disease. 3. Normal left-sided filling pressures. 4. Successful percutaneous intervention with drug-eluting stents to the proximal mid-left circumflex coronary artery. PLAN 1. The patient will be monitored closely for any post-procedural complication. 2. Continue aggressive medical therapy. 3. Initiate an aspirin. 4. We will get a 2-D echocardiogram. 5. Anticipate possible discharge tomorrow. Ivan Oh MD SM/SSB /9:48 AM /10:42 AM
[2017-05-28] MEDS ORDERED: BACITRACIN OINT 0.9 GM PKT TOP ONE (11:00)
[2017-05-28] MEDS ORDERED: ISOSORBIDE MONONITRATE 30 MG TAB PO SCH (11:00)
--- NOTE | 2017-05-28 11:54 | EKG ---
Date Performed: 05/27/2017 Time Performed: 18:41:25 PTAGE: 86 years EKG: Sinus rhythm BORDERLINE LEFT AXIS DEVIATION BORDERLINE ECG Compared to prior tracing no significant change DOCTOR: Terrell Vidal Interpretating Date/Time 05/28/2017 11:53:22
--- NOTE | 2017-05-28 11:54 | EKG ---
Date Performed: 05/27/2017 Time Performed: 13:00:04 PTAGE: 86 years EKG: Sinus rhythm NORMAL ECG PREVIOUS TRACING : 01/08/2002 08.21 Compared to prior tracing no significant change DOCTOR: Terrell Vidal Interpretating Date/Time 05/28/2017 11:53:02
--- NOTE | 2017-05-28 15:56 | EKG ---
Date Performed: 05/28/2017 Time Performed: 02:54:24 PTAGE: 86 years EKG: Normal Sinus rhythm Poor R-wave progression Probable due to lead placement compare to prior tracing. Nondiagnostic Q-wa ve changes in inferior leads with a slight shift in axis compare to prior tracing Abnormal ECG PREVIOUS TRACING 05/27/2017 @ 18.41.25 DOCTOR: Terrell Vidal Interpretating Date/Time 05/28/2017 16:08:23
--- NOTE | 2017-05-28 16:37 | HHI.FPPN ---
Subjective Remarks Patient seen after catheterization today and states that he is feeling relatively well. He denies any chest pain or shortness of breath at this time. He denies any palpitations. He denies any diaphoresis. He denies any nausea or vomiting. He denies any lower extremity edema. In summary this is an 86-year-old relatively healthy gentleman presenting to the emergency department with chest pain 1 day. Describes the pain as sharp and 7/10 radiating to his back and left arm. It lasted for approximately 30 minutes and resolved prior to the patient home back to sleep. He then experienced the same pain upon awakening in the morning and decided to come into the emergency department for further evaluation. In the emergency department he was noted to have a normal EKG, however his troponins were elevated at 0.47 and he was started on a heparin drip and monitored overnight. His troponins trended upwards and he was taken for cardiac catheterization today Objective Vitals Vital Signs Date Time Temp Pulse Resp B/P Pulse Ox O2 Delivery O2 Flow Rate FiO2 05/28/17 09:54 95 Room Air 05/28/17 08:05 Room Air 05/28/17 08:00 97.9 67 20 135/77 95 05/28/17 04:00 97.6 59 16 118/63 94 05/28/17 00:00 97.8 62 16 122/68 94 05/27/17 21:45 97.6 65 18 162/85 96 05/27/17 19:44 78 18 121/74 98 Room Air 05/27/17 18:00 96 21 05/27/17 17:28 69 18 166/89 96 Room Air Result Diagram: 05/27/17 1311 05/28/17 0344 Imaging Last 48 hours Impressions Chest X-Ray 05/27/17 1255 Signed Impressions: Service Date/Time: Saturday, May 27, 2017 13:37 - CONCLUSION: 1. Bilateral pulmonary nodules. This could relate to metastatic disease. CT scan of the thorax is suggested to further evaluate. Gopal Hawkins Jr., MD Objective Remarks GENERAL: Well-nourished, well-developed patient. Pleasant, sitting in bed in no obvious distress CARDIOVASCULAR: Regular rate and rhythm without murmurs, gallops, or rubs. RESPIRATORY: Breath sounds equal bilaterally. No accessory muscle use. GASTROINTESTINAL: Abdomen soft, non-tender, nondistended. EXTREMITIES: No cyanosis, or edema. Right hand is in extension wrist brace with radial pressure dressing in place that is clean and dry. Procedures 05/28/17 Cardiac catheterization with stent placement 2 A/P Assessment and Plan 86-year old M presenting with episodic chest pain. Pt had left-sided chest pain radiating to left arm and back. Pt had no active chest pain when seen in ED. EKG was normal. CXR revealed bilateral pulmonary nodules, possibly due to pt's hx of sarcoidosis. Elevated troponin in ED at 0.47. Differential diagnoses include ACS, angina, [place], aortic dissection, pulmonary embolism. Pt on heparin drip, started on metoprolol (for BP), and continue with aspirin. Pt started on statin yesterday. Lipid panel showed elevated LDL at 101. Cardiology consulted. Troponin trending up to 1.37. Pt having cardiac catheterization this AM. Problem List: (1) NSTEMI (non-ST elevated myocardial infarction) Status: Acute Plan: Non-ST elevation [place] based on elevated troponins and no acute changes on EKG-Troponin elevated at 0.47 in ED 05/27, troponin trending up to 1.37 00:51 at 05/28 -CXR reveals bilateral pulmonary nodules, possibly due to pt's hx of sarcoidosis Medications: Aspirin 325 mg daily Plavix 75 mg daily Metoprolol 25 mg daily Atorvastatin 40 mg daily Imdur 60 mg daily Continue to monitor on telemetry (2) Abnormal chest x-ray Status: Acute Plan: Likely secondary to patient's history of sarcoidosis - Recommend CT scan of the chest as an outpatient (3) Benign essential tremor Status: Acute Plan: Patient was on propranolol at home prior to admission - Changed to metoprolol during hospital stay (4) Hypertension Status: Acute Plan: -Last BP check was 118/63 -Continue Metoprolol 25mg PO daily -Continue Imdur 60 mg daily (5) Nutrition, metabolism, and development symptoms Status: Acute Plan: Fluids: None Nutrition: start regular diet after cardiac catherization Nursing orders: telemetry, monitor I & Os, monitor vitals q4h Problem Qualifiers (1) Hypertension: Qualified Code: I10 - Hypertension, unspecified type Raghavendra Stevens MD May 28, 2017 16:37
[2017-05-28] MEDS ORDERED: ATORVASTATIN 40 MG TAB PO SCH (21:00)
[2017-05-29] VITALS (16 sets, daily range): BP systolic 95–124; BP diastolic 58–77; PULSE 62–90; RESP 16–20; TEMP 98.1–98.5; O2SAT 95–97
[2017-05-29 05:36] LABS: AUTOMATED NEUTROPHIL # 3.9 TH/MM3 (1.8-7.7); BASOPHIL % 0.5 % (0.0-2.0); EOSINOPHIL # 0.3 TH/MM3 (0-0.4); EOSINOPHIL % 4.3 % (0.0-4.0); HEMATOCRIT 38.3 % (39.0-51.0); HEMO FLAGS DIFF FINAL; LYMPH % 21.4 % (9.0-44.0); LYMPHOCYTE # 1.3 TH/MM3 (1.0-4.8); MEAN CELL VOLUME 91.5 FL (80.0-100.0); MEAN CORPUSCULAR HEMOGLOBIN 31.4 PG (27.0-34.0); MEAN CORPUSCULAR HGB CONC 34.3 % (32.0-36.0); MONO % 9.8 % (0.0-8.0); PLATELET COUNT 143 TH/MM3 (150-450); RED BLOOD COUNT 4.19 MIL/MM3 (4.50-5.90); RED CELL DISTRIBUTION WIDTH 13.7 % (11.6-17.2); WHITE BLOOD COUNT 6.1 TH/MM3 (4.0-11.0)
[2017-05-29 06:04] LABS: BICARBONATE 29.4 MEQ/L (21.0-32.0); POTASSIUM 4.1 MEQ/L (3.5-5.1)
[2017-05-29 06:07] LABS: HDL CHOLESTEROL 45.4 MG/DL (40.0-60.0)
[2017-05-29] MEDS: ASPIRIN 325 MG TAB PO SCH (08:37)
[2017-05-29] MEDS: METOPROLOL SUCCINATE 25 MG EXTENDED RELEASE TAB PO SCH (08:37)
[2017-05-29] MEDS: SODIUM CHLORIDE 0.9% FLUSH 10 ML FLUSH IV FLUSH SCH (08:38)
--- NOTE | 2017-05-29 08:47 | PD.CARD.PN ---
Subjective Subjective Remarks doing well no complaints Objective Medications Active Medications Aspirin (Aspirin) 325 mg DAILY PO Last administered on 05/29/17 08:37; Admin Dose 325 MG; Start 05/28/17 at 09:00 Atorvastatin Calcium (Lipitor) 40 mg HS PO Last administered on 05/28/17 20:41 ; Admin Dose 40 MG; Start 05/28/17 at 21:00 Bacitracin (Bacitracin Oint Packet) 0.9 gm ONCE ONCE TOP; Start 05/28/17 at 11: 00; Stop 05/28/17 at 11:01; Status DC Bivalirudin (Angiomax Inj) 250 mg STK-MED ONCE .ROUTE Last administered on 09:08; Admin Dose 250 MG; Start 05/28/17 at 09:08; Stop 05/28/17 at 09:09; Status DC Bivalirudin/ Sodium Chloride (Angiomax Inj/NS Inj) 50 ml @ 0 mls/hr Q0M IV; Start 05/28/17 at 09:47; Stop 05/28/17 at 13:46; Status DC Clopidogrel Bisulfate (Plavix) 75 mg DAILY PO Last administered on 05/29/17 08: 37; Admin Dose 75 MG; Start 05/29/17 at 09:00 Clopidogrel Bisulfate (Plavix) 600 mg STK-MED ONCE .ROUTE Last administered on 09:39; Admin Dose 600 MG; Start 05/28/17 at 09:39; Stop 05/28/17 at 09: 40; Status DC Iohexol (OMNIPAQUE 350 INJ (Care Team Coordinator Scheduler)) 50 ml STK-MED ONCE OTHER; Start 05/28/17 at 09:56; Stop 05/28/17 at 09:57; Status DC Iohexol (OMNIPAQUE 350 INJ (Care Team Coordinator Scheduler)) 100 ml STK-MED ONCE OTHER; Start at 09:56; Stop 05/28/17 at 09:57; Status DC Isosorbide Mononitrate 60 mg 60 mg DAILY@07 PO Last administered on 05/29/17 06 :21; Admin Dose 60 MG; Start 05/28/17 at 11:00 Miscellaneous Information 1 1 ONCE ONCE XX; Start 05/28/17 at 10:00; Stop 05/28 at 10:01; Status DC Nitroglycerin (Nitrostat Sl (Adm Override)) 0.4 mg STK-MED ONCE SL Last administered on 05/28/17t 09:35; Admin Dose 0.4 MG; Start 05/28/17 at 09:35; Stop 05/28/17 at 09:36; Status DC Sodium Chloride (NS 1000 ml Inj) 1,000 ml @ 100 mls/hr Q10H IV; Start 05/28/17 at 09:47; Stop 05/28/17 at 15:46; Status DC Vital Signs / I&O Vital Signs Date Time Temp Pulse Resp B/P Pulse Ox O2 Delivery O2 Flow Rate FiO2 05/29/17 06:00 62 05/29/17 05:00 62 05/29/17 04:00 66 16 124/77 96 05/29/17 04:00 68 05/29/17 03:00 68 05/29/17 02:00 62 05/29/17 01:00 62 05/29/17 00:00 98.3 68 16 119/76 96 05/29/17 00:00 67 05/28/17 23:00 60 05/28/17 22:00 72 05/28/17 21:00 68 05/28/17 20:40 97 Room Air 05/28/17 20:00 87 05/28/17 20:00 97.9 67 16 116/86 95 05/28/17 19:00 62 05/28/17 17:00 98.3 6 16 146/89 95 05/28/17 17:00 96 Room Air 05/28/17 09:54 95 Room Air I/O 05/28/17 05/28/17 05/28/17 05/29/17 05/29/17 05/29/17 07:00 15:00 23:00 07:00 15:00 23:00 Intake Total 240 ml Output Total 700 ml Balance -460 ml Intake Oral 240 ml Output Urine Total 700 ml Physical Exam GENERAL: SKIN: Warm and dry. HEAD: Normocephalic. EYES: No scleral icterus. No injection or drainage. NECK: Supple, trachea midline. No JVD or lymphadenopathy. CARDIOVASCULAR: Regular rate and rhythm without murmurs, gallops, or rubs. RESPIRATORY: Breath sounds equal bilaterally. No accessory muscle use. GASTROINTESTINAL: Abdomen soft, non-tender, nondistended. MUSCULOSKELETAL: No cyanosis, or edema. BACK: Nontender without obvious deformity. No CVA tenderness. Laboratory Laboratory Tests Test 05/29/17 04:41 White Blood Count 6.1 TH/MM3 Red Blood Count 4.19 MIL/MM3 Hemoglobin 13.1 GM/DL Hematocrit 38.3 % Mean Corpuscular Volume 91.5 FL Mean Corpuscular Hemoglobin 31.4 PG Mean Corpuscular Hemoglobin 34.3 % Concent Red Cell Distribution Width 13.7 % Platelet Count 143 TH/MM3 Mean Platelet Volume 8.3 FL Neutrophils (%) (Auto) 64.0 % Lymphocytes (%) (Auto) 21.4 % Monocytes (%) (Auto) 9.8 % Eosinophils (%) (Auto) 4.3 % Basophils (%) (Auto) 0.5 % Neutrophils # (Auto) 3.9 TH/MM3 Lymphocytes # (Auto) 1.3 TH/MM3 Monocytes # (Auto) 0.6 TH/MM3 Eosinophils # (Auto) 0.3 TH/MM3 Basophils # (Auto) 0.0 TH/MM3 CBC Comment DIFF FINAL Differential Comment Sodium Level 141 MEQ/L Potassium Level 4.1 MEQ/L Chloride Level 106 MEQ/L Carbon Dioxide Level 29.4 MEQ/L Anion Gap 6 MEQ/L Blood Urea Nitrogen 16 MG/DL Creatinine 0.93 MG/DL Estimat Glomerular Filtration 77 ML/MIN Rate Random Glucose 100 MG/DL Calcium Level 8.3 MG/DL Total Creatine Kinase 99 U/L Troponin I 1.51 NG/ML Triglycerides Level 90 MG/DL Cholesterol Level 139 MG/DL LDL Cholesterol 76 MG/DL HDL Cholesterol 45.4 MG/DL Cholesterol/HDL Ratio 3.06 RATIO Imaging Last Impressions Chest X-Ray 05/27/17 1255 Signed Impressions: Service Date/Time: Saturday, May 27, 2017 13:37 - CONCLUSION: 1. Bilateral pulmonary nodules. This could relate to metastatic disease. CT scan of the thorax is suggested to further evaluate. Gopal Hawkins Jr., MD Assessment and Plan Assessment and Plan NSTEMI - PCI LCx TAYLOR asa plavix statin bb nitrate DC home today FU in OPD Ivan Lopez MD May 29, 2017 08:47
[2017-05-29] MEDS ORDERED: CLOPIDOGREL 75 MG TAB PO SCH (09:00)
--- NOTE | 2017-05-29 10:14 | EKG ---
Date Performed: 05/28/2017 Time Performed: 10:04:06 PTAGE: 86 years EKG: NORMAL Sinus rhythm LOW LIMB LEAD VOLTAGE, NEW SINCE PRIOR TRACING Abnormal ECG PREVIOUS TRACING : 05/28/2017 02.54 DOCTOR: Terrell Vidal Interpretating Date/Time 05/29/2017 10:13:00
--- NOTE | 2017-05-29 11:35 | HHI.FPPN ---
Subjective Remarks Patient seen and examined this morning. Afebrile vital signs stable. Patient is doing well. He is excited to go home today. Informed him that we are waiting on the echo to be done and that he will be discharged following that. He reports that since being on metoprolol he feels his essential tremors have improved more than the propranolol, he requests continuing metoprolol on discharge. Patient denies any pain at this time. Endorses: None Denies: Fever, chills, nausea, vomiting, shortness of breath, chest pain, headache, abdominal pain, calf pain (Toni Liriano MD R2) Objective Vitals Vital Signs Date Time Temp Pulse Resp B/P Pulse Ox O2 Delivery O2 Flow Rate FiO2 05/29/17 09:34 95 21 05/29/17 06:00 62 05/29/17 05:00 62 05/29/17 04:00 66 16 124/77 96 05/29/17 04:00 68 05/29/17 03:00 68 05/29/17 02:00 62 05/29/17 01:00 62 05/29/17 00:00 98.3 68 16 119/76 96 05/29/17 00:00 67 05/28/17 23:00 60 05/28/17 22:00 72 05/28/17 21:00 68 05/28/17 20:40 97 Room Air 05/28/17 20:00 87 05/28/17 20:00 97.9 67 16 116/86 95 05/28/17 19:00 62 05/28/17 17:00 98.3 6 16 146/89 95 05/28/17 17:00 96 Room Air I/O 05/28/17 05/28/17 05/28/17 05/29/17 05/29/17 05/29/17 06:59 14:59 22:59 06:59 14:59 22:59 Intake Total 240 ml Output Total 700 ml Balance -460 ml Intake Oral 240 ml Output Urine Total 700 ml (Toni Liriano MD R2) Result Diagram: 05/29/1744005/29/171 Imaging Last Impressions Chest X-Ray 05/27/17 1255 Signed Impressions: Service Date/Time: Saturday, May 27, 2017 13:37 - CONCLUSION: 1. Bilateral pulmonary nodules. This could relate to metastatic disease. CT scan of the thorax is suggested to further evaluate. Gopal Hawkins Jr., MD Objective Remarks GENERAL: Well-nourished, well-developed patient. Pleasant, sitting in bed in no obvious distress CARDIOVASCULAR: Regular rate and rhythm without murmurs, gallops, or rubs. RESPIRATORY: Breath sounds equal bilaterally. No accessory muscle use. GASTROINTESTINAL: Abdomen soft, non-tender, nondistended. EXTREMITIES: No cyanosis, or edema. Right hand is in extension wrist brace with radial pressure dressing in place that is clean and dry. Procedures 05/28/17 Cardiac catheterization with stent placement 2 Medications and IVs Current Medications Medications (Trade) Dose Ordered Sig/Johnny Route Start Time Stop Time Status Last Admin (NS Flush) 2 ml UNSCH PRN IV FLUSH 05/27/17 16:45 (NS Flush) 2 ml BID IV FLUSH 05/27/17 21:00 05/29/17 08:38 (Tylenol) 650 mg Q4H PRN PO 05/27/17 16:45 05/28/17 12:58 (Narcan Inj) 0.4 mg UNSCH PRN IV 05/27/17 16:45 (Aspirin) 325 mg DAILY PO 05/28/17 09:00 05/29/17 08:37 (Lipitor) 40 mg HS PO 05/28/17 21:00 05/28/17 20:41 (Toprol Xl) 25 mg DAILY PO 05/27/17 18:00 05/29/17 08:37 (Imdur) 60 mg DAILY@07 PO 05/28/17 11:00 05/29/17 06:21 (Plavix) 75 mg DAILY PO 05/29/17 09:00 05/29/17 08:37 (Toni Liriano MD R2) A/P Assessment and Plan 86-year-old male with past medical history significant for brain aneurysm, essential tremor, vertigo. Admitted for an NSTEMI, status post catheterization Discharge Planning Plan for discharge today (Toni Liriano MD R2) Attending Attestation Patient examined and case discussed with resident physicians I have read the above note and agree with the assessment/plan is discussed with me I was involved in all medical decision making for this patient Raghavendra Stevens M.D. (Raghavendra Stevens MD) Problem List: (1) NSTEMI (non-ST elevated myocardial infarction) Status: Acute Plan: Status post cardiac catheterization on 05/28/17 -CXR reveals bilateral pulmonary nodules, possibly due to pt's hx of sarcoidosis Medications: Aspirin 325 mg daily Plavix 75 mg daily Metoprolol 25 mg daily Atorvastatin 40 mg daily Imdur 60 mg daily Patient will be discharged home today (2) Abnormal chest x-ray Status: Acute Plan: Likely secondary to patient's history of sarcoidosis - Recommend CT scan of the chest as an outpatient (3) Benign essential tremor Status: Acute Plan: Patient was on propranolol at home prior to admission - Changed to metoprolol during hospital stay, patient prefers metoprolol and will continue (4) Hypertension Status: Acute Plan: -Last BP check was 124/77 -Continue Metoprolol 25mg PO daily -Continue Imdur 60 mg daily (5) Nutrition, metabolism, and development symptoms Status: Acute Plan: Fluids: None Nutrition: Regular diet Nursing orders: telemetry, monitor I & Os, monitor vitals q4h DVT prophylaxis: On Plavix (Toni Liriano MD R2) Problem Qualifiers (1) Hypertension: Qualified Code: I10 - Hypertension, unspecified type Toni Liriano MD R2 May 29, 2017 11:35 Raghavendra Stevens MD May 29, 2017 15:25
[2017-05-29] MEDS ORDERED: PLAV75TA29 PO (14:07)
[2017-05-29] MEDS ORDERED: ATOR40TA16 PO (14:07)
[2017-05-29] MEDS ORDERED: METO25TA6 PO (14:07)
[2017-05-29] MEDS ORDERED: ISOS30TA3 PO (14:07)
--- NOTE | 2017-05-29 14:08 | HHI.DCPOC ---
Discharge Care Plan Diagnosis: (1) NSTEMI (non-ST elevated myocardial infarction) (2) Benign essential tremor Goals to Promote Your Health * To prevent worsening of your condition and complications * To maintain your health at the optimal level Directions to Meet Your Goals Take your medications as prescribed Follow your dietary instruction Follow activity as directed Keep your appointments as scheduled Take your immunizations and boosters as scheduled If your symptoms worsen call your PCP, if no PCP go to Urgent Care Center or Emergency Room Smoking is Dangerous to Your Health. Avoid second hand smoke Call the 24-hour hour crisis hotline for domestic abuse at Marcia Pan MD R1 May 29, 2017 14:08
--- NOTE | 2017-05-29 14:09 | HHI.DS ---
Discharge Summary Admission Date May 27, 2017 at 17:07 Discharge Date: May 29, 2017 Admitting Diagnosis NSTEMI (1) NSTEMI (non-ST elevated myocardial infarction) Diagnosis: Principal Plan: Status post cardiac catheterization on 05/28/17 -CXR reveals bilateral pulmonary nodules, possibly due to pt's hx of sarcoidosis Medications: Aspirin 325 mg daily Plavix 75 mg daily Metoprolol 25 mg daily Atorvastatin 40 mg daily Imdur 60 mg daily Patient will be discharged home today (2) Abnormal chest x-ray Diagnosis: Secondary Plan: Likely secondary to patient's history of sarcoidosis - Recommend CT scan of the chest as an outpatient (3) Benign essential tremor Diagnosis: Secondary Plan: Patient was on propranolol at home prior to admission - Changed to metoprolol during hospital stay, patient prefers metoprolol and will continue (4) Hypertension Diagnosis: Secondary Plan: -Last BP check was 124/77 -Continue Metoprolol 25mg PO daily -Continue Imdur 60 mg daily (5) Nutrition, metabolism, and development symptoms Diagnosis: Secondary Plan: Fluids: None Nutrition: Regular diet Nursing orders: telemetry, monitor I & Os, monitor vitals q4h DVT prophylaxis: On Plavix [facility] Procedures 05/28/17 Cardiac catheterization with stent placement 2 Brief History 86 yr old M presents to the ED with chest pain. Pt states the chest pain started about 2-3 am last night and woke the patient up. Described the pain as sharp 7/10 radiating to the back and left arm. Lasted for 30 min, resolved, and pt went back to sleep. Pt experienced the same pain again around 10AM and decided to come to the ED. drove him. He has never had a similar episode before. Denies any cardiac history, SOB, diaphoresis, N/V, abdominal pain, calf swelling. When seen in the ED, pt was not having any active chest pain and appeared well. EKG in ED was normal, no ST elevations or T wave changes. However, troponin was elevated at 0.47. Pt started on heparin drip. Pt is currently on propranolol for essential tremor and takes a baby aspirin daily. No hx of smoking. PCP is Dr. Solo Goldstein. CBC/BMP: 05/29/17 0441 05/29/17 0441 Significant Findings Laboratory Tests Test 05/27/17 05/27/17 05/27/17 05/28/17 13:11 18:30 21:35 00:51 Neutrophils (%) (Auto) 71.7 % (16.0-70.0) Activated Partial 23.9 SEC 42.9 SEC Thromboplast Time (24.3-30.1) (24.3-30.1) Carbon Dioxide Level 32.9 MEQ/L (21.0-32.0) Anion Gap 3 MEQ/L (5-15) Blood Urea Nitrogen 21 MG/DL (7-18) Estimat Glomerular Filtration 66 ML/MIN (>89) Rate Random Glucose 72 MG/DL (74-106) Troponin I 0.47 NG/ML 1.25 NG/ML 1.37 NG/ML (0.02-0.05) (0.02-0.05) (0.02-0.05) LDL Cholesterol 101 MG/DL (0-99) HDL Cholesterol 60.2 MG/DL (40.0-60.0) Test 05/28/17 05/29/17 03:44 04:41 Activated Partial 42.3 SEC Thromboplast Time (24.3-30.1) Chloride Level 108 MEQ/L (98-107) Blood Urea Nitrogen 19 MG/DL (7-18) Estimat Glomerular Filtration 76 ML/MIN (>89) 77 ML/MIN (>89) Rate Red Blood Count 4.19 MIL/MM3 (4.50-5.90) Hematocrit 38.3 % (39.0-51.0) Platelet Count 143 TH/MM3 (150-450) Monocytes (%) (Auto) 9.8 % (0.0-8.0) Eosinophils (%) (Auto) 4.3 % (0.0-4.0) Calcium Level 8.3 MG/DL (8.5-10.1) Troponin I 1.51 NG/ML (0.02-0.05) Imaging Last Impressions Chest X-Ray 05/27/17 1255 Signed Impressions: Service Date/Time: Saturday, May 27, 2017 13:37 - CONCLUSION: 1. Bilateral pulmonary nodules. This could relate to metastatic disease. CT scan of the thorax is suggested to further evaluate. Gopal Hawkins Jr., MD PE at Discharge GENERAL: Well-nourished, well-developed patient. Pleasant, sitting in bed in no obvious distress CARDIOVASCULAR: Regular rate and rhythm without murmurs, gallops, or rubs. RESPIRATORY: Breath sounds equal bilaterally. No accessory muscle use. GASTROINTESTINAL: Abdomen soft, non-tender, nondistended. EXTREMITIES: No cyanosis, or edema. Right hand is in extension wrist brace with radial pressure dressing in place that is clean and dry. Hospital Course Patient was admitted on 05/27/17 for NSTEMI. Cardiology consulted. Patient went for catheterization w/ stent placed on 05/28/17. On 05/29/17, patient was determined to be stable enough to discharge home and follow-up with overcoiler. Pt Condition on Discharge: Stable Discharge Disposition: Discharge Home Discharge Instructions DIET: Follow Instructions for: Heart Healthy Diet Activities you can perform: Regular-No Restrictions Follow up Referrals: Cardiology - 1 Week PCP Follow-up - 1 Week New Medications: Atorvastatin (Atorvastatin) 40 Mg Tab 40 MG PO HS #30 TAB Clopidogrel (Plavix) 75 Mg Tab 75 MG PO DAILY #30 TAB Isosorbide Mononitrate ER (Isosorbide Mononitrate ER) 30 Mg Brie 60 MG PO DAILY@07 #30 TAB Metoprolol Succinate ER 24 HR (Metoprolol Succinate ER 24 HR) 25 Mg Tab 25 MG PO DAILY #30 TAB Continued Medications: Aspirin (Aspirin) 81 Mg Chew 81 MG CHEW DAILY Ref 0 TAB Cholecalciferol (Vitamin D3) 1,000 Unit Tab 1000 UNITS PO DAILY Nutritional Supplement #60 Ref 2 TAB Meclizine HCl (Meclizine 25) 25 Mg Tab 1 TAB PO BID #180 Ref 2 TAB Discontinued Medications: Propranolol (Propranolol) 20 Mg Tab 20 MG PO Q8HR #90 Ref 3 TAB Marcia Pan MD R1 May 29, 2017 14:09
--- NOTE | 2017-05-29 17:07 | ECHRPT ---
Indication: CHEST PAIN CONCLUSIONS Small left ventricular size. [id number] concentric left ventricular hypertrophy. No regional wall motion abnormalities are present. Doppler parameters are consistent with impaired left ventricular relaxtion (grade 1 diastolic dysfun ction). Mild aortic dilatation at the level of the sinuses of Valsalva. Mild thickening of the mitral valve leaflets. Trace mitral valve regurgitation. Cannot rule out a bicuspid aortic valve or trileaflet valve with partially fused commissure. Aortic valve sclerosis is present. Trace aortic valve regurgitation. No aortic valve stenosis. BP: 135 / 77 HR: 67 Rhythm: Sinus MEASUREMENTS (Male / Female) Normal Values Technical Quality:Fair 2D ECHO LV Diastolic Diameter PLAX 3.2 cm 4.2 - 5.9 / 3.9 - 5.3 cm LV Systolic Diameter PLAX 2.6 cm IVS Diastolic Thickness 1.3 cm 0.6 - 1.0 / 0.6 - 0.9 cm LVPW Diastolic Thickness 1.3 cm 0.6 - 1.0 / 0.6 - 0.9 cm LV Relative Wall Thickness 0.8 LVOT Diameter 1.9 cm Aortic Root Diameter 3.9 cm LA Systolic Diameter LX 2.7 cm 3.0 - 4.0 / 2.7 - 3.8 cm M-MODE AV Cusp Separation MM 1.9 cm DOPPLER AV Peak Velocity 113.0 cm/s AV Peak Gradient 5.1 mmHg AV Mean Gradient 3.0 mmHg AV Velocity Time Integral 22.6 cm LVOT Peak Velocity 69.2 cm/s LVOT Peak Gradient 1.9 mmHg LVOT Velocity Time Integral 13.9 cm LVOT Cardiac Index 1372.4 cm/minm AV Area Cont Eq vti 1.7 cm AV Area Cont Eq pk 1.7 cm Mitral E Point Velocity 37.0 cm/s Mitral A Point Velocity 85.4 cm/s Mitral E to A Ratio 0.4 LV E' Lateral Velocity 9.1 cm/s Mitral E to LV E' Lateral Ratio 4.1 LV E' Septal Velocity 9.5 cm/s Mitral E to LV E' Septal Ratio 3.9 TR Peak Velocity 194.0 cm/s TR Peak Gradient 15.1 mmHg PV Peak Velocity 35.3 cm/s PV Peak Gradient 0.5 mmHg FINDINGS LEFT VENTRICLE Small left ventricular size. [id number] concentric left ventricular hypertrophy. No regional wall motion abnormalities are present. Doppler parameters are consistent with impaired left ventricular relaxtion (grade 1 diastolic dysfun ction). RIGHT VENTRICLE Normal right ventricular size and systolic function. LEFT ATRIUM The left atrial size is normal. RIGHT ATRIUM The right atrial size is normal. ATRIAL SEPTUM Normal atrial septal thickness without atrial level shunting by limited color doppler interrogation. AORTA Mild aortic dilatation at the level of the sinuses of Valsalva. MITRAL VALVE Mild thickening of the mitral valve leaflets. Trace mitral valve regurgitation. AORTIC VALVE Cannot rule out a bicuspid aortic valve or trileaflet valve with partially fused commissure. Aortic valve sclerosis is present. Trace aortic valve regurgitation. No aortic valve stenosis. TRICUSPID VALVE Structurally normal tricuspid valve. No tricuspid valve stenosis or regurgitation. PULMONARY VALVE The pulmonary valve is not well visualized. VESSELS The inferior vena cava is normal in size. PERICARDIUM No pericardial effusion. Ivan Lopez MD, FACC (Electronically Signed) Final Date:29 May 2017 17:07
--- NOTE | 2017-05-29 20:38 | EKG ---
Date Performed: 05/29/2017 Time Performed: 05:11:10 PTAGE: 86 years EKG: Sinus rhythm Abnormal ECG PREVIOUS TRACING : 05/28/2017 10.04 Compared to prior tracing no significant change DOCTOR: Swathi Caballero Interpretating Date/Time 05/29/2017 20:37:00
== END 2017-05-29 15:33 | disposition home or self-care (01) | DRG 247 ==
LOC: NEPE 12:31 → NEDA 17:07 → N04B 21:43 → HCIS 05-28 09:47
PROVIDERS: ADMIT Family Medicine; ATTEND Family Medicine
PROC: 02703ZZ Dilation of Coronary Artery, One Artery, Percutaneous Approach (ICD-10-PCS; 2017-05-28)
PROC: 4A023N7 Measurement of Cardiac Sampling and Pressure, Left Heart, Percutaneous Approach (ICD-10-PCS; 2017-05-28)
PROC: B2111ZZ Fluoroscopy of Multiple Coronary Arteries using Low Osmolar Contrast (ICD-10-PCS; 2017-05-28)
PROC: 027135Z Dilation of Coronary Artery, Two Arteries with Two Drug-eluting Intraluminal Devices, Percutaneous Approach (ICD-10-PCS; principal; 2017-05-28 09:45)
DX: I21.4 Non-ST elevation (NSTEMI) myocardial infarction (principal); I67.1 Cerebral aneurysm, nonruptured; I10 Essential (primary) hypertension; G25.0 Essential tremor; L11.1 Transient acantholytic dermatosis [Grover]; I25.10 Atherosclerotic heart disease of native coronary artery without angina pectoris; R91.8 Other nonspecific abnormal finding of lung field; Z79.82 Long term (current) use of aspirin
CPT/HCPCS: 71020; 80048; 80061; 82550; 82948; 84484; 85025; 85610; 85730; 86850; 86900; 86901; 92928; 93005; 93306; 93454; 96365; 96375; C1725; C1769; C1874; C1887; C1893; J0583; J1644; J2250; J3010; J7030; Q9967

== ENCOUNTER 2017-12-11 09:32 | Emergency (ER) | payer MEDICARE ==
[~2017-12-11] VITALS: Ht 185.4 cm; Wt 76.0 kg
[~2017-12-11 09:32] MED LIST changes: +ASPI-516 CHEW; -ASPI1TAB7; +ATOR40TA16 PO; +ISOS60TA PO; -LOMO PO; -MECL-62 PO; +METO1TAB42 PO; +PLAV75TA29 PO; -PROP20TA3 PO
[2017-12-11 09:34] VITALS: BP 160/88; PULSE 64; RESP 16; TEMP 98.2; O2SAT 97
[2017-12-11] MEDS ORDERED: SODIUM CHLORID 0.9% 500 ML INJ 500 ML IV ONE (10:45)
[2017-12-11] MEDS ORDERED: SODIUM CHLORIDE 0.9% FLUSH 10 ML FLUSH IV FLUSH PRN (10:45)
[2017-12-11 10:58] LABS: AUTOMATED NEUTROPHIL # 7.3 TH/MM3 (1.8-7.7); BASOPHIL % 0.5 % (0.0-2.0); EOSINOPHIL # 0.2 TH/MM3 (0-0.4); EOSINOPHIL % 1.8 % (0.0-4.0); LYMPH % 15.3 % (9.0-44.0); LYMPHOCYTE # 1.5 TH/MM3 (1.0-4.8); MEAN CELL VOLUME 93.8 FL (80.0-100.0); MEAN CORPUSCULAR HEMOGLOBIN 32.1 PG (27.0-34.0); MEAN CORPUSCULAR HGB CONC 34.2 % (32.0-36.0); MEAN PLATELET VOLUME 8.4 FL (7.0-11.0); MONO % 7.5 % (0.0-8.0); MONOCYTE # 0.7 TH/MM3 (0-0.9); NEUT % 74.9 % (16.0-70.0); PLATELET COUNT 167 TH/MM3 (150-450); RED BLOOD COUNT 4.37 MIL/MM3 (4.50-5.90); RED CELL DISTRIBUTION WIDTH 13.8 % (11.6-17.2); WHITE BLOOD COUNT 9.7 TH/MM3 (4.0-11.0)
[2017-12-11 11:08] LABS: PROTHROMBIN TIME - PATIENT 10.2 SEC (9.8-11.6)
[2017-12-11 11:17] LABS: BACTERIA, URINE RARE /hpf; BILIRUBIN, URINE NEG (NEG); BLOOD, URINE MOD (NEG); GLUCOSE,URINE NEG (NEG); KETONE, URINE NEG (NEG); MUCUS URINE FEW /lpf (OCC); NITRITE,URINE NEG (NEG); URINE COLOR YELLOW (YELLW/STRAW); URINE LEUKOCYTE ESTERASE NEG (NEG)
[2017-12-11 11:19] LABS: ALKALINE PHOSPHATASE 61 U/L (45-117); ALT (GPT) 19 U/L (12-78); TOTAL PROTEIN 6.7 GM/DL (6.4-8.2)
[2017-12-11 11:29] LABS: ALBUMIN 3.7 GM/DL (3.4-5.0); AST (GOT) 26 U/L (15-37); BICARBONATE 29.8 MEQ/L (21.0-32.0); BLOOD UREA NITROGEN 25 MG/DL (7-18); CALCIUM 9.2 MG/DL (8.5-10.1); CHLORIDE 106 MEQ/L (98-107); CREATININE 1.54 MG/DL (0.60-1.30); GLOMERULAR FILTRATION RATE 43 ML/MIN (>89); GLUCOSE,RANDOM 94 MG/DL (74-106); SODIUM (NA) 139 MEQ/L (136-145)
--- NOTE | 2017-12-11 12:23 | RADRPT ---
EXAM DATE/TIME: 12/11/2017 11:48 [place] COMPARISON: No previous studies available for comparison. INDICATIONS : Left lower abdominal pain. ORAL CONTRAST: No oral contrast ingested. RADIATION DOSE: 7.62 CTDIvol (mGy) MEDICAL HISTORY : Renal calculi. Cardiovascular disease SURGICAL HISTORY : Multiple lithotripsies. ENCOUNTER: Initial ACUITY: 1 day PAIN SCALE: 7/10 LOCATION: Left lower quadrant TECHNIQUE: Volumetric scanning of the abdomen and pelvis was performed. Using automated exposure control and ad justment of the mA and/or kV according to patient size, radiation dose was kept as low as reasonably achievable to obtain optimal diagnostic quality images. DICOM format image data is available electro nically for review and comparison. FINDINGS: Moderate emphysematous changes are seen in both lung and basces. The liver, spleen and pancreas are unremarkable Adrenal glands appear normal Right kidney: Right kidney is small containing 3 less than 2 mm nonobstructing calcifications. Left kidney: There is large extra renal pelvis containing 3 small calcifications. 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 The large stone measuring 1.4 cm is i n this renal pelvis probably causing partial obstruction.. The fourth calcification is seen in the lo wer pole. There are no calcifications along the expected course of the left ureter There are no inflammatory changes in the pelvis There is no adenopathy Moderate vascular calcifications are evident Degenerative changes are seen lumbar spine. CONCLUSION: 1. Probable partially obstructing large stone in the left renal pelvis with minimal perinephric stran ding 2. Multiple small stones in both kidneys 3. Extensive vascular calcifications 4. There are no inflammatory changes. Sid Boudreaux MD FACR on December 11, 2017 at 12:17 Board Certified Radiologist. This report was verified electronically.
[2017-12-11 12:54] VITALS: BP 142/80; PULSE 62; RESP 15; O2SAT 97
[2017-12-11 12:55] VITALS: BP 142/80
[2017-12-11] MEDS ORDERED: NORC5TAB PO (13:06)
[2017-12-11] MEDS ORDERED: TAMS5CAP PO (13:06)
--- NOTE | 2017-12-11 13:06 | PD ---
HPI Chief Complaint: Abdominal Pain Time Seen by Provider: 10:13 Travel History International Travel<30 days: No Contact w/Intl Traveler<30days: No Traveled to known affect area: No History of Present Illness HPI Patient is an 87-year-old male who comes in complaining of left-sided abdominal pain. He says is been going on for the past several days, but is been getting worse. He says it feels similar to when he had a kidney stone in the past. He also reports no bowel movement in the past 2 days. He denies nausea or vomiting. He denies fever or chills. He has not taken anything for the pain. He says he always has a dull constant pain, but then gets waves of severe pain. Nothing seems to improve his symptoms. Severity is mild to moderate. PFSH Past Medical History Cancer: No Cardiovascular Problems: Yes Chest Pain: Yes Diminished Hearing: No Endocrine: No Genitourinary: Yes Kidney Stones: Yes Musculoskeletal: No Neurologic: Yes (TREMORS) Psychiatric: No Reproductive: No Respiratory: Yes (MISSING PART OF L UPPER LOBE) Past Surgical History Genitourinary Surgery: Yes (MULTIPLE LITHOTRIPSY) Thoracic Surgery: Yes (LEFT LOBECTOMY R/T INFECTION) Other Surgery: Yes (FX NOSE REPAIR) Social History Alcohol Use: Yes (1-2 DAILY) Tobacco Use: No Substance Use: No Allergies-Medications (Allergen,Severity, Reaction): Coded Allergies: No Known Allergies (Verified Adverse Reaction, Unknown, 12/11/17) Reported Meds & Prescriptions Reported Meds & Active Scripts Active Meclizine 25 (Meclizine HCl) 25 Mg Tab 1 Tab PO BID Isosorbide Mononitrate ER (Isosorbide Mononitrate) 60 Mg Tab 60 Mg PO DAILY Plavix (Clopidogrel Bisulfate) 75 Mg Tab 75 Mg PO DAILY Atorvastatin (Atorvastatin Calcium) 40 Mg Tab 40 Mg PO HS Vitamin D3 (Cholecalciferol) 1,000 Unit Tab 1,000 Units PO DAILY Reported Aspirin 81 Mg Chew 81 Mg CHEW DAILY Review of Systems Except as stated in HPI: all other systems reviewed are Neg General / Constitutional: No: Fever, Chills HENT: No: Headaches, Lightheadedness Cardiovascular: No: Chest Pain or Discomfort Respiratory: No: Shortness of Breath Gastrointestinal: Positive: Abdominal Pain, No: Nausea, Vomiting Genitourinary: No: Dysuria, Hematuria Musculoskeletal: No: Myalgias Skin: No Rash, No Change in Pigmentation Neurologic: No: Weakness, Dizziness Physical Exam Narrative GENERAL: Awake and alert, in no acute distress. SKIN: Focused skin assessment warm/dry. HEAD: Atraumatic. Normocephalic. EYES: Pupils equal and round. No scleral icterus. ENT: Mucous membranes pink and moist. NECK: Trachea midline. No JVD. CARDIOVASCULAR: Regular rate and rhythm. No murmur appreciated. RESPIRATORY: No accessory muscle use. Clear to auscultation. Breath sounds equal bilaterally. GASTROINTESTINAL: Abdomen soft, non-tender, nondistended. No CVA tenderness. MUSCULOSKELETAL: No obvious deformities. No clubbing. No cyanosis. No edema. NEUROLOGICAL: Awake and alert. No obvious cranial nerve deficits. Motor grossly within normal limits. Normal speech. PSYCHIATRIC: Appropriate mood and affect; insight and judgment normal. Data Data Last Documented VS Vital Signs Date Time Temp Pulse Resp B/P (MAP) Pulse Ox O2 Delivery O2 Flow Rate FiO2 12/11/17 12:55 63 15 142/80 (100) 97 12/11/17 12:54 Room Air 12/11/17 09:34 98.2 Orders Orders Complete Blood Count With Diff (12/11/17 10:37) Comprehensive Metabolic Panel (12/11/17 10:37) Lipase (12/11/17 10:37) Prothrombin Time / Inr (Pt) (12/11/17 10:37) Act Partial Throm Time (Ptt) (12/11/17 10:37) Urinalysis - C+S If Indicated (12/11/17 10:37) Ct Abd/Pel W/O Iv Contrast (12/11/17 10:37) Iv Access Insert/Monitor (12/11/17 10:37) Ecg Monitoring (12/11/17 10:37) Oximetry (12/11/17 10:37) Sodium Chloride 0.9% Flush (Ns Flush) (12/11/17 10:45) Sodium Chlorid 0.9% 500 Ml Inj (Ns 500 M (12/11/17 10:45) Labs Laboratory Tests Test 12/11/17 10:30 12/11/17 11:00 White Blood Count 9.7 TH/MM3 Red Blood Count 4.37 MIL/MM3 Hemoglobin 14.0 GM/DL Hematocrit 41.0 % Mean Corpuscular Volume 93.8 FL Mean Corpuscular Hemoglobin 32.1 PG Mean Corpuscular Hemoglobin Concent 34.2 % Red Cell Distribution Width 13.8 % Platelet Count 167 TH/MM3 Mean Platelet Volume 8.4 FL Neutrophils (%) (Auto) 74.9 % Lymphocytes (%) (Auto) 15.3 % Monocytes (%) (Auto) 7.5 % Eosinophils (%) (Auto) 1.8 % Basophils (%) (Auto) 0.5 % Neutrophils # (Auto) 7.3 TH/MM3 Lymphocytes # (Auto) 1.5 TH/MM3 Monocytes # (Auto) 0.7 TH/MM3 Eosinophils # (Auto) 0.2 TH/MM3 Basophils # (Auto) 0.0 TH/MM3 CBC Comment DIFF FINAL Differential Comment Prothrombin Time 10.2 SEC Prothromb Time International Ratio 1.0 RATIO Activated Partial Thromboplast Time 22.5 SEC Blood Urea Nitrogen 25 MG/DL Creatinine 1.54 MG/DL Random Glucose 94 MG/DL Total Protein 6.7 GM/DL Albumin 3.7 GM/DL Calcium Level 9.2 MG/DL Alkaline Phosphatase 61 U/L Aspartate Amino Transf (AST/SGOT) 26 U/L Alanine Aminotransferase (ALT/SGPT) 19 U/L Total Bilirubin 1.0 MG/DL Sodium Level 139 MEQ/L Potassium Level 5.4 MEQ/L Chloride Level 106 MEQ/L Carbon Dioxide Level 29.8 MEQ/L Anion Gap 3 MEQ/L Estimat Glomerular Filtration Rate 43 ML/MIN Lipase 120 U/L Urine Color YELLOW Urine Turbidity CLEAR Urine pH 7.0 Urine Specific [place] 1.010 Urine Protein NEG mg/dL Urine Glucose (UA) NEG mg/dL Urine Ketones NEG mg/dL Urine Occult Blood MOD Urine Nitrite NEG Urine Bilirubin NEG Urine Urobilinogen LESS THAN 2.0 MG/DL Urine Leukocyte Esterase NEG Urine RBC 2 /hpf Urine WBC LESS THAN 1 /hpf Urine Bacteria RARE /hpf Urine Mucus FEW /lpf Microscopic Urinalysis Comment CULT NOT INDICATED MDM Medical Decision Making Medical Screen Exam Complete: Yes Emergency Medical Condition: Yes Medical Record Reviewed: Yes Differential Diagnosis Diverticulitis versus renal stone versus UTI versus pyelonephritis versus constipation Narrative Course Patient is an 87-year-old male comes in complaining of left-sided abdominal pain. Exam shows no CVA tenderness, abdomen is soft. IV established, labs sent. Labs show a creatinine of 1.54, which is elevated from his previous several months ago. CT abdomen and pelvis performed shows a large stone within the left kidney, partially obstructing the ureter. Patient has a urologist. At first, he was refusing pain medicine. He is comfortable, no vomiting. Patient says he can follow-up with his urologist, he plans to go over to the office today. He will be given a prescription for pain medicine. Given a prescription for Flomax. Advised to return anytime for any worsening symptoms. He and his are comfortable this plan at this time. Diagnosis Primary Impression: Renal stone Patient Instructions: General Instructions, Kidney Stones (ED) Departure Forms: Tests/Procedures Additional Instructions: Follow-up with urology. Take pain medicine as needed. Drink plenty of fluids. Return anytime for any worsening symptoms. Scripts Tamsulosin (Flomax) 0.4 Mg Cap 0.4 MG PO HS for Manage Prostate Problems for 7 Days, #7 CAP 0 Refills Prov: Savanna Spivey MD 12/11/17 Hydrocodone-Acetaminophen ([place]) 5 Mg-325 Mg Tab 1 TAB PO Q6H Y for PAIN, #10 TAB 0 Refills Prov: Savanna Spivey MD 12/11/17 Disposition: 01 DISCHARGE HOME Condition: Stable Savanna Spivey MD Dec 11, 2017 13:06
[2017-12-11] MEDS ORDERED: ACETAMINOPHEN/HYDROcodone 325 MG/5 MG TAB PO ONE (13:15)
== END 2017-12-11 13:18 | disposition home or self-care (01) ==
LOC: NEPE 09:32
DX: N20.0 Calculus of kidney (principal); I25.10 Atherosclerotic heart disease of native coronary artery without angina pectoris; Z87.442 Personal history of urinary calculi; Z79.899 Other long term (current) drug therapy
CPT/HCPCS: 74176; 80053; 81001; 83690; 85025; 85610; 85730; 96360; 99284; J7040